=== PATIENT | female | born 1985 | race Caucasian/White ===

== ENCOUNTER 2017-02-19 22:42 | Emergency (ER) | payer MEDICAID ==
[2017-02-19] MEDS ORDERED: Sodium Chloride 0.9% 2.5 ML Syringe FLUSH PRN (22:56)
[2017-02-19] MEDS ORDERED: Sodium Chloride 0.9% 10 ML Syringe FLUSH PRN (22:56)
[2017-02-19] MEDS ORDERED: Sodium Chloride 0.9% 1,000 ML IV ONE (22:56)
--- NOTE | 2017-02-19 23:02 | EDM.PDOC ---
[id number]: PT HAS FEVER Time Seen by Provider: 02/19/17 22:57 - History of Present Illness INITIAL COMMENTS - FREE TEXT/NARRATIVE: HISTORY AND PHYSICAL: History of present illness: Patient's age 31-year-old white female 12 weeks status post vaginal hysterectomy presents with sternal or abdominal pain and low-grade fevers but no vomiting no diarrhea no other complaints Review of systems: As per history of present illness and below otherwise all systems reviewed and negative. Past medical history: As per history of present illness and as reviewed below otherwise noncontributory. Surgical history: As per history of present illness and as reviewed below otherwise noncontributory. Social history: No reported history of drug or alcohol abuse. Family history: As per history of present illness and as reviewed below otherwise noncontributory. Physical exam: HEENT: Atraumatic, normocephalic, pupils reactive, negative for conjunctival pallor or scleral icterus, mucous membranes moist, throat clear, neck supple, nontender, trachea midline. Lungs: Clear to auscultation, breath sounds equal bilaterally, chest nontender. Heart: S1S2, regular, negative for clicks, rubs, or JVD. Abdomen: Soft, nondistended, mild tenderness in the right lower cautions deep palpation no rebound no guarding. Negative for masses or hepatosplenomegaly. Negative for costovertebral tenderness. Pelvis: Stable nontender. Genitourinary: Deferred. Rectal: Deferred. Extremities: Atraumatic, negative for cords or calf pain. Neurovascular unremarkable. Neuro: Awake, alert, oriented. Cranial nerves II through XII unremarkable. Cerebellum unremarkable. Motor and sensory unremarkable throughout. Exam nonfocal. Diagnostics: CBC CMP lipase UA urine culture blood culture CT abdomen and pelvis chest x-ray influenza screen Therapeutics: Normal saline 1 L bolus Impression: #1 abdominal pain #2 observation 12 weeks status post vaginal hysterectomy Definitive disposition and diagnosis as appropriate pending reevaluation and review of above. Right Lower Abdomen Pain Score (Numeric/FACES): 6 - Related Data Allergies Allergy/AdvReac Type Severity Reaction Status Date / Time Morphine Allergy Disorientat Uncoded 02/19/17 22:54 ion Home Meds: Home Meds amLODIPine Besylate [Amlodipine Besylate] 10 mg PO DAILY 03/07/14 [History] Acetaminophen [Tylenol] 1,300 mg PO Q4HR 02/20/17 [History] Ibuprofen [Motrin] 1,600 mg PO Q4HR 02/20/17 [History] Lisdexamfetamine Dimesylate [Vyvanse] 70 mg PO ASDIRECTED 02/20/17 [History] Venlafaxine [Effexor] 100 mg PO DAILY 02/20/17 [History] Past Medical History HEENT History: Reports: Impaired vision Cardiovascular History: Reports: Hypertension Other Cardiovascular History: Benign Essential Hypertension Respiratory History: Reports: None Gastrointestinal History: Reports: Cholelithiasis Other Gastrointestinal History: Current non-healing wound from Tubal ligation procedure, need for wound Incision and drainage COUTIERIER History: Reports: Musculoskeletal History: Reports: Other (see below) Other Musculoskeletal History: HX: Fracture Right wrist, hx: falling no nail with puncture wound to Left knee requiring Incision and drainage Neurological History: Reports: None Psychiatric History: Reports: Depression, Other (see below) Other Psychiatric History: Chronic major depressive disorder Endocrine/Metabolic History: Reports: None Hematologic History: Reports: None Immunologic History: Reports: None Oncologic (Cancer) History: Reports: None Dermatologic History: Reports: None Other Dermatologic History: I&D knee wound, I&D of wound following tubal ligation, hx MRSA - Infectious Disease History Infectious Disease History: Reports: MRSA - Past Surgical History Head Surgeries/Procedures: Reports: None HEENT Surgical History: Reports: Oral surgery GI Surgical History: Reports: Bariatric procedure, Cholecystectomy Female Surgical History: Reports: Tubal ligation Social & Family History - Family History Family Medical History: Noncontributory - Tobacco Use Smoking Status *Q: Never Smoker Second Hand Smoke Exposure: No - Caffeine Use Caffeine Use: Reports: Soda - Alcohol Use Days Per Week of Alcohol Use: 0 - Recreational Drug Use Recreational Drug Use: No Drug Use in Last 12 Months: No ED ROS GENERAL - Review of Systems Review Of Systems: ROS reveals no pertinent complaints other than HPI. ED EXAM, GENERAL - Physical Exam Exam: See Below (see dictation) Course - Vital Signs Text/Narrative:: patient seen in ed by Dr Horan further evaluation treatment and disposition as per Dr Horan Last Recorded V/S: Last Vital Signs Temp 37.3 C 02/20/17 03:55 Pulse 89 02/20/17 03:55 Resp 20 02/20/17 03:55 BP 154/78 H 02/20/17 03:55 Pulse Ox 96 02/20/17 03:55 - Orders/Labs/Meds Orders: Active Orders 24 hr Category Date Time Status Abdomen Pelvis wo Cont [CT] Stat Exams 02/19/17 22:56 Taken Chest 2V [CR] Stat Exams 02/19/17 22:56 Taken Pelvis Non OB Comp [US] Stat Exams 02/20/17 00:13 Taken CULTURE URINE [RM] Stat Lab 02/19/17 23:00 Received Saline Lock Insert [OM.PC] Stat Oth 02/19/17 22:55 Ordered Labs: Laboratory Tests 02/19/17 02/19/17 02/19/17 Range/Units 23:00 23:10 23:10 WBC 10.94 (4.0-11.0) K/uL RBC 4.26 L (4.30-5.90) M/uL Hgb 11.1 L (12.0-16.0) g/dL Hct 34.8 L (36.0-46.0) % MCV 81.7 (80.0-98.0) fL MCH 26.1 L (27.0-32.0) pg MCHC 31.9 (31.0-37.0) g/dL RDW Std Deviation 43.3 (28.0-62.0) fl RDW Coeff of Catrachito 15 (11.0-15.0) % Plt Count 311 (150-400) K/uL MPV 10.20 (7.40-12.00) fL Neut % (Auto) 69.8 (48.0-80.0) % Lymph % (Auto) 21.1 (16.0-40.0) % Erie % (Auto) 7.9 (0.0-15.0) % Eos % (Auto) 1.0 (0.0-7.0) % Baso % (Auto) 0.2 (0.0-1.5) % Neut # (Auto) 7.6 H (1.4-5.7) K/uL Lymph # (Auto) 2.3 (0.6-2.4) K/uL Erie # (Auto) 0.9 H (0.0-0.8) K/uL Eos # (Auto) 0.1 (0.0-0.7) K/uL Baso # (Auto) 0.0 (0.0-0.1) K/uL Nucleated RBC % 0.0 /100WBC Nucleated RBCs # 0 K/uL Sodium 138 (136-146) mmol/L Potassium 3.8 (3.5-5.1) mmol/L Chloride 107 (98-110) mmol/L Carbon Dioxide 19 L (21-31) mmol/L BUN 14 (6.0-23.0) mg/dL Creatinine 0.8 (0.6-1.5) mg/dL Est Cr Clr Drug Dosing TNP Estimated GFR (MDRD) > 60.0 ml/min Glucose 101 (60-110) mg/dL Calcium 8.7 L (8.8-10.8) mg/dL Total Bilirubin 0.4 (0.1-1.5) mg/dL AST 14 (5-40) IU/L ALT 16 (8-54) IU/L Alkaline Phosphatase 107 (40-150) Total Protein 7.0 (6.0-8.0) g/dL Albumin 3.9 (3.5-5.0) g/dL Globulin 3.1 (2.0-3.5) g/dL Albumin/Globulin Ratio 1.3 (1.3-2.8) Lipase 13 (7-80) U/L Urine Color YELLOW Urine Appearance SLT CLOUDY Urine pH 6.0 (5.0-8.0) Ur Specific Poyen 1.025 (1.001-1.035) Urine Protein NEGATIVE (NEGATIVE) mg/dL Urine Glucose (UA) NEGATIVE (NEGATIVE) mg/dL Urine Ketones NEGATIVE (NEGATIVE) mg/dL Urine Occult Blood SMALL H (NEGATIVE) Urine Nitrite NEGATIVE (NEGATIVE) Urine Bilirubin NEGATIVE (NEGATIVE) Urine Urobilinogen 0.2 (<2.0) EU/dL Ur Leukocyte Esterase LARGE (NEGATIVE) Urine RBC 1-3 (0-2/HPF) Urine WBC 125-150 (0-5/HPF) Ur Epithelial Cells FEW (NONE-FEW) Amorphous Sediment LIGHT (NEGATIVE) Urine Bacteria FEW (NEGATIVE) Urine Mucus LIGHT (NONE-MOD) Eva species DNA (NEGATIVE) Gardnerella DNA Probe Trichomonas DNA Probe (NEGATIVE) 02/20/ Range/Units 03:25 WBC (4.0-11.0) K/uL RBC (4.30-5.90) M/uL Hgb (12.0-16.0) g/dL Hct (36.0-46.0) % MCV (80.0-98.0) fL MCH (27.0-32.0) pg MCHC (31.0-37.0) g/dL RDW Std Deviation (28.0-62.0) fl RDW Coeff of Catrachito (11.0-15.0) % Plt Count (150-400) K/uL MPV (7.40-12.00) fL Neut % (Auto) (48.0-80.0) % Lymph % (Auto) (16.0-40.0) % Erie % (Auto) (0.0-15.0) % Eos % (Auto) (0.0-7.0) % Baso % (Auto) (0.0-1.5) % Neut # (Auto) (1.4-5.7) K/uL Lymph # (Auto) (0.6-2.4) K/uL Erie # (Auto) (0.0-0.8) K/uL Eos # (Auto) (0.0-0.7) K/uL Baso # (Auto) (0.0-0.1) K/uL Nucleated RBC % /100WBC Nucleated RBCs # K/uL Sodium (136-146) mmol/L Potassium (3.5-5.1) mmol/L Chloride (98-110) mmol/L Carbon Dioxide (21-31) mmol/L BUN (6.0-23.0) mg/dL Creatinine (0.6-1.5) mg/dL Est Cr Clr Drug Dosing Estimated GFR (MDRD) ml/min Glucose (60-110) mg/dL Calcium (8.8-10.8) mg/dL Total Bilirubin (0.1-1.5) mg/dL AST (5-40) IU/L ALT (8-54) IU/L Alkaline Phosphatase (40-150) Total Protein (6.0-8.0) g/dL Albumin (3.5-5.0) g/dL Globulin (2.0-3.5) g/dL Albumin/Globulin Ratio (1.3-2.8) Lipase (7-80) U/L Urine Color Urine Appearance Urine pH (5.0-8.0) Ur Specific Poyen (1.001-1.035) Urine Protein (NEGATIVE) mg/dL Urine Glucose (UA) (NEGATIVE) mg/dL Urine Ketones (NEGATIVE) mg/dL Urine Occult Blood (NEGATIVE) Urine Nitrite (NEGATIVE) Urine Bilirubin (NEGATIVE) Urine Urobilinogen (<2.0) EU/dL Ur Leukocyte Esterase (NEGATIVE) Urine RBC (0-2/HPF) Urine WBC (0-5/HPF) Ur Epithelial Cells (NONE-FEW) Amorphous Sediment (NEGATIVE) Urine Bacteria (NEGATIVE) Urine Mucus (NONE-MOD) Eva species DNA NEGATIVE (NEGATIVE) Gardnerella DNA Probe POSITIVE Trichomonas DNA Probe NEGATIVE (NEGATIVE) Meds: Medications Discontinued Medications Generic Name Dose Route Start Last Admin Trade Name Freq PRN Reason Stop Dose Admin Sodium Chloride 1,000 mls @ 999 mls/hr 02/19/17 22:56 02/19/17 23:15 Normal Saline IV 02/19/17 23:56 999 mls/hr STAT ONE Administration Ceftriaxone Sodium/Dextrose 2 50 mls @ 100 mls/hr 02/19/17 23:58 02/20/17 01: 27 gm/ Premix IV 02/20/17 00:27 100 mls/hr ONETIME ONE Administration Sodium Chloride 10 ml 02/19/17 22:56 Saline Flush FLUSH ASDIRECTED PRN Keep Vein Open Sodium Chloride 2.5 ml 02/19/17 22:56 Saline Flush FLUSH ASDIRECTED PRN Keep Vein Open Departure - Departure Time of Disposition: 03:00 Disposition: Home, Self-Care 01 Clinical Impression: Ovarian Torsion, UTI (urinary tract infection) Instructions: Abdominal Pain, Adult, [id number] Referrals: Jana Shafer [Ordering Only Provider] - PCP,None [Primary Care Provider] - Forms: ED Department Discharge Additional Instructions: Please take medications as prescribed, you may use Motrin and Tylenol for pain control. Soni Bates will call you on Wednesday to schedule an appointment. Please nothing vaginally until seen by Provider. Return to the ED as needed and discussed. - My Orders Last 24 Hours: My Active Orders 02/19/17 22:55 Saline Lock Insert [OM.PC] Stat 02/19/17 22:56 Abdomen Pelvis wo Cont [CT] Stat Chest 2V [CR] Stat 02/19/17 23:00 CULTURE URINE [RM] Stat 02/20/17 00:13 Pelvis Non OB Comp [US] Stat - Assessment/Plan Last 24 Hours: My Active Orders 02/19/17 22:55 Saline Lock Insert [OM.PC] Stat 02/19/17 22:56 Abdomen Pelvis wo Cont [CT] Stat Chest 2V [CR] Stat 02/19/17 23:00 CULTURE URINE [RM] Stat 02/20/17 00:13 Pelvis Non OB Comp [US] Stat
[2017-02-19 23:48] LABS: CHLORIDE,CL 107 mmol/L (98-110); SODIUM,NA 138 mmol/L (136-146)
[2017-02-19] MEDS ORDERED: cefTRIAXone 2 GM in Premix Bag 1 BAG IV ONE (23:58)
[2017-02-20 04:08] VITALS: BP 154/78
--- NOTE | 2017-02-20 07:53 | HP ---
DATE OF : 1985 PRIMARY CARE PHYSICIAN: None PCP PRESENTING COMPLAINT: 1) Right-sided lower abdominal pain. 2) Fever HISTORY: 31-year-old, Para 2 presented to the ER with complaints of 5 days duration of intermittent right-sided lower quadrant pain, described as a burning stabbing pain, nonradiating with no known aggravating factors. Reports that she does some relief with Ibuprofen and Bentyl prescribed during her office visit 3 days ago She reports that she has had ongoing low grade fever at home for the last 2 days but last night she had a fever of 101 hence her presentation to the ER. She denies nausea or vomiting, bloating, no change in bowel habits and no bloody or mucoid stools. Denies urinary symptoms and also denies vaginal bleeding, abnormal discharge, vaginal pressure or pain. In the ER, the patient had a CT scan, which showed a soft tissue density in the right pelvis with surrounding fat stranding, and this was read as highly concerning for right ovarian torsion.The appendix was visualized and reported as normal. A pelvic ultrasound was then performed, which showed an ill-defined appearance of possibly the right ovary with diminished blood flow, also read as worrying for an evolving or intermittent right ovarian torsion. There was a small amount of pelvic fluid in the cul-de-sac. Her lab results were normal with a WBC count of 10.9, Hemoglobin of 11.11, hematocrit of 34.8, and platelets of 311. CMP was normal, so were the LFTs. Urinalysis showed occult blood, large amount of leukocyte esterase with WBC/pf of 125 to 150, negative for nitrites. She given 2 g of Rocephin empirically for a urinary tract infection by the ER attending. REVIEW OF SYSTEMS: As in the body of the history. MEDICAL HISTORY: Hypertension Depression with anxiety Morbid obesity History of MRSA Chronic anemia, Vitamins D and B12 deficiency. SURGICAL HISTORY: Total vaginal hysterectomy in 11/2016 for menorrhagia Abdominoplasty 2006 Gastric bypass 2004 Carpal tunnel surgery 2014 Multiple left knee surgeries FAMILY HISTORY: History of psychiatric disorders in Mother and Siblings and Hypercholesteremia in father. SOCIAL HISTORY: Single, in a long-term relationship. Nonsmoker. Denies the use of illicit drugs or ingestion of alcohol. GYNECOLOGICAL HISTORY: Periods are absent secondary to hysterectomy,currently not sexually active. History of genital herpes. OBSTETRIC HISTORY: Two normal vaginal deliveries. MEDICATION: Effexor 150 mg daily Temazepam 50 mg as needed Iron supplement Vitamin D 50,000 international units weekly Norvasc 10 mg daily Ibuprofen 600 mg 4 times a day PRN Vyvanse 70 mg PRN ALLERGIES: Morphine: difficulty in breathing. PHYSICAL EXAMINATION: GENERAL: When I saw the patient in the ER, she was sitting upright, not in distress, reported a pain scale of about 4/5, but not requiring any pain medications. VITAL SIGNS: Temperature 36.7C (T-max in the ER was 37.7 C on admission), BP 131/86, IN: 90bpm CHEST: Clear to auscultation bilaterally. CARDIOVASCULAR: S1+ S2, RRR. ABDOMEN: Morbidly obese, soft with mild tenderness on the right side, no rebound tenderness. Normal bowel sounds. EXTREMITIES: No edema. No calf tenderness. PELVIC: No external lesions. Speculum revealed small amount of creamy discharge. Absent uterus and cervix with intact cuff Affirm swab was collected. Mildly tender right adnexa on bimanual examination. On rectovaginal examination, the right adnexa was tender and I could feel a fullness on that side but I was unable to palpate any mass bimanually, mainly due to the patient's body habitus. ASSESSMENT: Right lower quadrant/ Pelvic pain with imaging suspicious for possible right ovarian torsion. The patient is stable, not in acute distress and has no signs and symptoms of acute abdomen or peritonitis. PLAN: I discussed the radiological findings with the patient explaining that the CT and the ultrasound suggest that she might have an ovarian torsion and explained what implications of a possible ovarian torsion would mean. Explained that since her symptoms have been ongoing for about a week and she is stable without signs of an acute abdomen, and if there is indeed an ovarian torsion it could have been torting and detorting based on her history but currently there is no clinical indication for an emergency laparoscopy, which would be the only way a definite diagnosis can be made then proceed by indicated procedures depending on intraoperative finding. Since she has had a low-grade fever for the last 48 hours and could possibly have a UTI ( urine culture pending), and also reported on the CT scan, was fat straining on the right side which could also point to a potential on going infective/ inflammatory process. on that side. I am going to continue PO antibiotics, Augmentin. I would arrange for a follow up for her on Wednesday, with a repeat follow up sonogram. She might require to have a diagnostic laparoscopy for further investigation/ management and this can be done as a nonemergent procedure given the current clinical picture/presentation and her other comorbidities. I haven't prescribed any narcotics for her as she hasn't required any throughout her ER stay, she may continue to take the NSAIDs as needed with food. [facility] will contact her on Wednesday follow up appointment. The patient voiced understanding and agreed with the above management plan. MAAME / JENSEN /[id number] AMRIK
--- NOTE | 2017-02-22 13:26 | CR ---
EXAM DATE: 02/19/17 PATIENT'S AGE: 31 Patient: AUBREE ALFARO Facility: [facility] Site . Site : 1985 Study: XRay-Chest [id number]/24/2017 11:53:23 PM Ordering Physician: Doctor Cunha Final Report: INDICATIONS: Fever. TECHNIQUE: Chest 2 view. COMPARISON: Chest radiograph 12/29/2013. FINDINGS: No pneumothorax, pleural effusion or airspace consolidation. Cardiac and mediastinal contours are within normal limits. Upper abdomen and osseous structures show no acute abnormality. IMPRESSION: No acute cardiopulmonary disease. Dictated by Christopher Jain MD @ 02/19/2017 11:57:19 PM Dictated by: Christopher Jain MD @ 02/19/2017 23:57:22 Signed by: Christopher Jain MD @02/19/2017 11:57:22 PM (Electronic Signature) Report Signed by Proxy and Original Signed Document filed in the Medical Record. MTDD
--- NOTE | 2017-02-22 13:27 | US ---
EXAM DATE: 02/19/17 PATIENT'S AGE: 31 Patient: AUBREE ALFARO Facility: [facility] Site . Site : 1985 Study: US-Pelvis [id number] 1:26:38 AM Ordering Physician: Gabriel Sanchez Final Report: INDICATION: Right pelvic pain. Pain x4 days. Hysterectomy 8 weeks ago. TECHNIQUE: Ultrasound pelvis transvaginal for better assessment or to better visualize the endometrium. Real-time sonographic images with spectral and color Doppler imaging of the ovaries were obtained. COMPARISON: CT abdomen and pelvis same date. FINDINGS: The uterus is absent. There is a heterogeneous ill-defined appearance of the right ovary. Left ovary measures 3.2 x 2.6 x 2.7 cm. The left ovary is normal in appearance. There is asymmetric, diminished flow in the right ovary compared to the left. Small amount of pelvic free fluid. IMPRESSION: Heterogeneous ill-defined appearance of the right ovary with diminished flow, worrisome for evolving or intermittent ovarian torsion. Discussed with Dr. Rios at the time of dictation. Dictated by Christopher Jain MD @ 02/20/2017 1:38:31 AM Dictated by: Christopher Jain MD @ 02/20/2017 01:38:46 Signed by: Christopher Jain MD @02/20/2017 1:38:46 AM (Electronic Signature) Report Signed by Proxy and Original Signed Document filed in the Medical Record. AMRIK
--- NOTE | 2017-02-22 13:28 | CT ---
EXAM DATE: 02/19/17 PATIENT'S AGE: 31 Patient: AUBREE ALFARO Facility: [facility] Site . Site : 1985 Study: CT-Abdomen/Pelvis WO CONT [id number]/24/2017 11:54:08 PM Ordering Physician: Doctor Cunha Final Report: INDICATION: Right lower quadrant pain for 4 days TECHNIQUE: CT abdomen and pelvis without contrast. COMPARISON: None FINDINGS: Lower chest: Unremarkable. Liver: Unremarkable. Spleen: Unremarkable. Pancreas: Unremarkable. Gallbladder and bile ducts: Status post cholecystectomy. Adrenal glands: Unremarkable. Kidneys: Unremarkable. No kidney or ureteral stones and no hydronephrosis. GI tract: Postoperative changes of a gastric bypass procedure. Appendix is normal. Vascular structures: Unremarkable. Lymph nodes: Unremarkable. Miscellaneous: Unremarkable. No free air or significant free fluid. Pelvic Organs: Status post hysterectomy. There is a 4.1 x 3.2 x 3.9 cm soft tissue density in the right pelvis with surrounding fat stranding. This lies directly lateral to the surgical clips. Bones: Unremarkable for age. IMPRESSION: 1. Soft tissue density in the right pelvis with surrounding fat stranding. Findings are highly concerning for right ovarian torsion. A pelvic ultrasound is recommended for further evaluation. These findings were discussed with Dr. Rios at 12:13am on 02/20/2017. 2. Normal appendix. 3. Status post cholecystectomy, gastric bypass, and hysterectomy. Dictated by Kari Martinez MD @ Feb 19 2017 11:58PM Signed by: Kari Martinez MD @02/20/2017 12:10:01 AM (Electronic Signature) \Report Signed by Proxy and Original Signed Document filed in the Medical Record. [facility]
== END 2017-02-20 03:55 | disposition home or self-care (01) ==
LOC: MW.ED 22:42
DX: R10.31 Right lower quadrant pain (principal); Z90.710 Acquired absence of both cervix and uterus; Z88.6 Allergy status to analgesic agent; Z79.899 Other long term (current) drug therapy; I10 Essential (primary) hypertension; F32.9 Major depressive disorder, single episode, unspecified
CPT/HCPCS: 36415; 71020; 74176; 76856; 80053; 81001; 83690; 85025; 87086; 87480; 87510; 87660; 87804; 96361; 96365; 99285; J0696; J7040; 99284

== ENCOUNTER 2017-08-11 18:29 | Emergency (ER) | payer MEDICAID ==
[2017-08-11 18:42] VITALS: BP 138/95
--- NOTE | 2017-08-11 19:16 | EDM.PDOC ---
ED HPI GENERAL MEDICAL PROBLEM - General Chief Complaint: Lower Extremity Injury/Pain Stated Complaint: LEFT LEG BRUNING TO CRAMPING Time Seen by Provider: 08/11/17 19:05 - History of Present Illness INITIAL COMMENTS - FREE TEXT/NARRATIVE: HISTORY AND PHYSICAL: History of present illness: Patient 32-year-old white female presents with concern of left leg pain is a family history of deep venous thrombosis patient denies trauma denies shortness of breath denies history of prior DVT no fever no chills no other complaints Review of systems: As per history of present illness and below otherwise all systems reviewed and negative. Past medical history: As per history of present illness and as reviewed below otherwise noncontributory. Surgical history: As per history of present illness and as reviewed below otherwise noncontributory. Social history: No reported history of drug or alcohol abuse. Family history: As per history of present illness and as reviewed below otherwise noncontributory. Physical exam: HEENT: Atraumatic, normocephalic, pupils reactive, negative for conjunctival pallor or scleral icterus, mucous membranes moist, throat clear, neck supple, nontender, trachea midline. Lungs: Clear to auscultation, breath sounds equal bilaterally, chest nontender. Heart: S1S2, regular, negative for clicks, rubs, or JVD. Abdomen: Soft, nondistended, nontender. Negative for masses or hepatosplenomegaly. Negative for costovertebral tenderness. Pelvis: Stable nontender. Genitourinary: Deferred. Rectal: Deferred. Extremities: Atraumatic, negative for cords or calf pain. Neurovascular unremarkable. Neuro: Awake, alert, oriented. Cranial nerves II through XII unremarkable. Cerebellum unremarkable. Motor and sensory unremarkable throughout. Exam nonfocal. Diagnostics: Venous Doppler left lower extremity Therapeutics: None Impression: #1 left leg pain Definitive disposition and diagnosis as appropriate pending reevaluation and review of above. Left Lower Leg Pain Score (Numeric/FACES): 4 - Related Data Allergies Allergy/AdvReac Type Severity Reaction Status Date / Time Morphine Allergy Disorientat Uncoded 08/11/17 18:38 ion Home Meds: Home Meds amLODIPine Besylate [Amlodipine Besylate] 10 mg PO DAILY 03/07/14 [History] Acetaminophen [Tylenol] 1,300 mg PO Q4HR 02/20/17 [History] Ibuprofen [Motrin] 1,600 mg PO Q4HR 02/20/17 [History] DULoxetine [Cymbalta] 120 mg PO DAILY 08/11/17 [History] Dextroamphetamine/Amphetamine [Adderall 20 mg Tablet] 20 mg PO BID 08/11/17 [ History] Past Medical History HEENT History: Reports: Impaired Vision Cardiovascular History: Reports: Hypertension Other Cardiovascular History: Benign Essential Hypertension Respiratory History: Reports: None Gastrointestinal History: Reports: Cholelithiasis Other Gastrointestinal History: Current non-healing wound from Tubal ligation procedure, need for wound Incision and drainage 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 OB/BYN History: Vaginal Hysterectomy Musculoskeletal History: Reports: Other (See Below) Other Musculoskeletal History: HX: Fracture Right wrist, hx: falling no nail with puncture wound to Left knee requiring Incision and drainage Neurological History: Reports: None Psychiatric History: Reports: Depression, Other (See Below) Other Psychiatric History: Chronic major depressive disorder Endocrine/Metabolic History: Reports: None Hematologic History: Reports: None Immunologic History: Reports: None Oncologic (Cancer) History: Reports: None Other Oncologic History: uterine hyperplasia Dermatologic History: Reports: None Other Dermatologic History: I&D knee wound, I&D of wound following tubal ligation, hx MRSA - Infectious Disease History Infectious Disease History: Reports: MRSA - Past Surgical History Head Surgeries/Procedures: Reports: None HEENT Surgical History: Reports: Oral Surgery GI Surgical History: Reports: Bariatric Procedure, Cholecystectomy Female Surgical History: Reports: Tubal Ligation Musculoskeletal Surgical History: Reports: Other (See Below) Social & Family History - Family History Family Medical History: Noncontributory Cardiac: Reports: Blood Clots/VTE/DVT - Tobacco Use Smoking Status *Q: Never Smoker Second Hand Smoke Exposure: No - Caffeine Use Caffeine Use: Reports: None - Alcohol Use Days Per Week of Alcohol Use: 0 - Recreational Drug Use Recreational Drug Use: No Drug Use in Last 12 Months: No Review of Systems - Review of Systems Review Of Systems: ROS reveals no pertinent complaints other than HPI. ED EXAM, GENERAL - Physical Exam Exam: See Below (See dictation) Course - Vital Signs Last Recorded V/S: Last Vital Signs Temp 36.0 C 08/11/17 18:40 Pulse 98 08/11/17 18:40 Resp 18 08/11/17 18:40 BP 138/95 H 08/11/17 18:40 Pulse Ox 97 08/11/17 18:40 Departure - Departure Time of Disposition: 19:09 Disposition: Home, Self-Care 01 Condition: Good Clinical Impression: Leg pain - Discharge Information Instructions: Foot Sprain Referrals: PCP,None [Primary Care Provider] - Forms: ED Department Discharge Additional Instructions: The following information is given to patients seen in the emergency department who are being discharged to home. This information is to outline your options for follow-up care. We provide all patients seen in our emergency department with a follow-up referral. The need for follow-up, as well as the timing and circumstances, are variable depending upon the specifics of your emergency department visit. If you don't have a primary care physician on staff, we will provide you with a referral. We always advise you to contact your personal physician following an emergency department visit to inform them of the circumstance of the visit and for follow-up with them and/or the need for any referrals to a consulting specialist. The emergency department will also refer you to a specialist when appropriate. This referral assures that you have the opportunity for followup care with a specialist. All of these measure are taken in an effort to provide you with optimal care, which includes your followup. Under all circumstances we always encourage you to contact your private physician who remains a resource for coordinating your care. When calling for followup care, please make the office aware that this follow-up is from your recent emergency room visit. If for any reason you are refused follow-up, please contact the [facility] emergency department at and asked to speak to the emergency department charge nurse. Follow-up primary medical doctor 1-2 days return as needed as discussed
--- NOTE | 2017-08-12 10:15 | US ---
EXAM DATE: 08/11/17 PATIENT'S AGE: 32 Patient: AUBREE ALFARO Facility: [place], [place] Site . Site : 1985 Study: US Extremity Venous [id number] 8:52:11 PM Ordering Physician: Gabriel Sanchez Final Report: INDICATION: Pain and swelling left lower extremity. TECHNIQUE: Ultrasound venous duplex lower left extremity. Compression venous exam was performed using taylor-scale, color Doppler, and spectral Doppler analysis. COMPARISON: No comparison. FINDINGS: Sonographic imaging demonstrates the left common femoral, deep femoral, superficial femoral, popliteal, posterior tibial and greater saphenous and the contralateral right common femoral veins to be fully compressible with normal color Doppler blood flow. IMPRESSION: No sign of deep venous thrombosis. Dictated by Kishore Reddy MD @ Aug 11 2017 9:04PM (Electronic Signature) Report Signed by Proxy. AMRIK
== END 2017-08-11 20:55 | disposition home or self-care (01) ==
LOC: MW.ED 18:29
DX: M79.605 Pain in left leg (principal); I10 Essential (primary) hypertension; F32.9 Major depressive disorder, single episode, unspecified; Z90.710 Acquired absence of both cervix and uterus; Z98.84 Bariatric surgery status; Z90.49 Acquired absence of other specified parts of digestive tract; Z79.899 Other long term (current) drug therapy; Z88.5 Allergy status to narcotic agent
CPT/HCPCS: 93971-26-LT; 93971-LT; 99283; 99283-25

== ENCOUNTER 2017-09-01 21:51 | Emergency (ER) | payer MEDICAID ==
[2017-09-01 22:05] VITALS: BP 135/84
--- NOTE | 2017-09-01 22:14 | EDM.PDOC ---
ED HPI GENERAL MEDICAL PROBLEM - General Chief Complaint: ENT Problem Stated Complaint: PT HAS TOOTHACHE Time Seen by Provider: 09/01/17 22:09 Source of Information: Reports: Patient - History of Present Illness INITIAL COMMENTS - FREE TEXT/NARRATIVE: HISTORY AND PHYSICAL: History of present illness: [Patient presents post tooth extraction on Wednesday, she had all of her upper teeth extracted lower teeth were extracted previously she is used her pain medicine prescribed by the oral surgeon she has been using Tylenol and ibuprofen and topical lidocaine without benefit No fever nausea vomiting chills sweats ] Review of systems: As per history of present illness and below otherwise all systems reviewed and negative. Past medical history: As per history of present illness and as reviewed below otherwise noncontributory. Surgical history: As per history of present illness and as reviewed below otherwise noncontributory. Social history: No reported history of drug or alcohol abuse. Family history: As per history of present illness and as reviewed below otherwise noncontributory. Physical exam: HEENT: Atraumatic, normocephalic, pupils reactive, negative for conjunctival pallor or scleral icterus, mucous membranes moist, throat clear, neck supple, nontender, trachea midline. No dentition postop Lungs: Clear to auscultation, breath sounds equal bilaterally, chest nontender. Heart: S1S2, regular, negative for clicks, rubs, or JVD. Abdomen: Soft, nondistended, nontender. Negative for masses or hepatosplenomegaly. Negative for costovertebral tenderness. Pelvis: Stable nontender. Genitourinary: Deferred. Rectal: Deferred. Extremities: Atraumatic, negative for cords or calf pain. Neurovascular unremarkable. Neuro: Awake, alert, oriented. Cranial nerves II through XII unremarkable. Cerebellum unremarkable. Motor and sensory unremarkable throughout. Exam nonfocal. Diagnostics: []Clinical Therapeutics: []Marcus 5 per 325 #10 one to 2 by mouth every 6 when necessary no refill Follow-up with oral surgeon for continued treatment Impression: []Postop dental pain Definitive disposition and diagnosis as appropriate pending reevaluation and review of above. Left Upper Tooth/Teeth Pain Score (Numeric/FACES): 10 - Related Data Allergies Allergy/AdvReac Type Severity Reaction Status Date / Time Morphine Allergy Disorientat Uncoded 09/01/17 22:05 ion Home Meds: Home Meds amLODIPine Besylate [Amlodipine Besylate] 10 mg PO DAILY 03/07/14 [History] DULoxetine [Cymbalta] 120 mg PO DAILY 08/11/17 [History] Dextroamphetamine/Amphetamine [Adderall 20 mg Tablet] 20 mg PO BID 08/11/17 [ History] Past Medical History HEENT History: Reports: Impaired Vision Cardiovascular History: Reports: Hypertension Other Cardiovascular History: Benign Essential Hypertension Respiratory History: Reports: None Gastrointestinal History: Reports: Cholelithiasis Other Gastrointestinal History: Current non-healing wound from Tubal ligation procedure, need for wound Incision and drainage 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 OB/BYN History: Vaginal Hysterectomy Musculoskeletal History: Reports: Other (See Below) Other Musculoskeletal History: HX: Fracture Right wrist, hx: falling no nail with puncture wound to Left knee requiring Incision and drainage Neurological History: Reports: None Psychiatric History: Reports: Depression, Other (See Below) Other Psychiatric History: Chronic major depressive disorder Endocrine/Metabolic History: Reports: None Hematologic History: Reports: None Immunologic History: Reports: None Oncologic (Cancer) History: Reports: None Other Oncologic History: uterine hyperplasia Dermatologic History: Reports: None Other Dermatologic History: I&D knee wound, I&D of wound following tubal ligation, hx MRSA - Infectious Disease History Infectious Disease History: Reports: Chicken Pox, MRSA - Past Surgical History Head Surgeries/Procedures: Reports: None HEENT Surgical History: Reports: Oral Surgery GI Surgical History: Reports: Bariatric Procedure, Cholecystectomy Female Surgical History: Reports: Tubal Ligation Musculoskeletal Surgical History: Reports: Other (See Below) Social & Family History - Family History Family Medical History: Noncontributory Cardiac: Reports: Blood Clots/VTE/DVT - Tobacco Use Smoking Status *Q: Never Smoker Second Hand Smoke Exposure: No - Caffeine Use Caffeine Use: Reports: None - Alcohol Use Days Per Week of Alcohol Use: 0 - Recreational Drug Use Recreational Drug Use: No Drug Use in Last 12 Months: No ED ROS GENERAL - Review of Systems Review Of Systems: ROS reveals no pertinent complaints other than HPI. ED EXAM, GENERAL - Physical Exam Exam: See Below Course - Vital Signs Last Recorded V/S: Last Vital Signs Temp 36.6 C 09/01/17 22:02 Pulse 71 09/01/17 22:02 Resp 18 09/01/17 22:02 BP 135/84 09/01/17 22:02 Pulse Ox 96 09/01/17 22:02 Departure - Departure Time of Disposition: 22:14 Disposition: Home, Self-Care 01 Condition: Good Clinical Impression: Pain, dental - Discharge Information Referrals: PCP,None [Primary Care Provider] - Additional Instructions: Follow-up with the oral surgeon for continued management Medication as prescribed The following information is given to patients seen in the emergency department who are being discharged to home. This information is to outline your options for follow-up care. We provide all patients seen in our emergency department with a follow-up referral. The need for follow-up, as well as the timing and circumstances, are variable depending upon the specifics of your emergency department visit. If you don't have a primary care physician on staff, we will provide you with a referral. We always advise you to contact your personal physician following an emergency department visit to inform them of the circumstance of the visit and for follow-up with them and/or the need for any referrals to a consulting specialist. The emergency department will also refer you to a specialist when appropriate. This referral assures that you have the opportunity for follow-up care with a specialist. All of these measure are taken in an effort to provide you with optimal care, which includes your follow-up. Under all circumstances we always encourage you to contact your private physician who remains a resource for coordinating your care. When calling for follow-up care, please make the office aware that this follow-up is from your recent emergency room visit. If for any reason you are refused follow-up, please contact the [facility] emergency department at and asked to speak to the emergency department charge nurse.
== END 2017-09-01 22:19 | disposition home or self-care (01) ==
LOC: MW.ED 21:51
DX: G89.18 Other acute postprocedural pain (principal); I10 Essential (primary) hypertension; K08.89 Other specified disorders of teeth and supporting structures; F32.9 Major depressive disorder, single episode, unspecified; Z98.818 Other dental procedure status; Z90.710 Acquired absence of both cervix and uterus; Z98.84 Bariatric surgery status; Z90.49 Acquired absence of other specified parts of digestive tract; Z79.899 Other long term (current) drug therapy; Z88.5 Allergy status to narcotic agent
CPT/HCPCS: 99282

== ENCOUNTER 2017-09-29 00:12 | Emergency (ER) | payer MEDICAID ==
[2017-09-29] MEDS ORDERED: methylPREDNISolone Acetate 80 MG/ML SDV IM ONE (00:34)
[2017-09-29] MEDS ORDERED: diphenhydrAMINE 50 MG/ML SDV IM ONE (00:35)
[2017-09-29] MEDS ORDERED: Triamcinolone Acetonide 0.1% Crm 80 GM Tube TOP STA (00:35)
--- NOTE | 2017-09-29 00:38 | EDM.PDOC ---
ED HPI GENERAL MEDICAL PROBLEM - General Chief Complaint: Skin Complaint Stated Complaint: ALLERGIC REACTION Time Seen by Provider: 09/29/17 00:28 Source of Information: Reports: Patient, RN - History of Present Illness INITIAL COMMENTS - FREE TEXT/NARRATIVE: itchy rash after temporary tattoo removal dorsum left hand. Left Arm Pain Score (Numeric/FACES): 3 - Related Data Allergies Allergy/AdvReac Type Severity Reaction Status Date / Time Morphine Allergy hard time Uncoded 09/29/17 00:18 breathing Home Meds: Home Meds amLODIPine Besylate [Amlodipine Besylate] 10 mg PO DAILY 03/07/14 [History] DULoxetine [Cymbalta] 120 mg PO DAILY 08/11/17 [History] Dextroamphetamine/Amphetamine [Adderall 20 mg Tablet] 20 mg PO BID 08/11/17 [ History] Past Medical History HEENT History: Reports: Impaired Vision Cardiovascular History: Reports: Hypertension Other Cardiovascular History: Benign Essential Hypertension Respiratory History: Reports: None Gastrointestinal History: Reports: Cholelithiasis Other Gastrointestinal History: Current non-healing wound from Tubal ligation procedure, need for wound Incision and drainage 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 OB/BYN History: Vaginal Hysterectomy Musculoskeletal History: Reports: Other (See Below) Other Musculoskeletal History: HX: Fracture Right wrist, hx: falling no nail with puncture wound to Left knee requiring Incision and drainage Neurological History: Reports: None Psychiatric History: Reports: Depression, Other (See Below) Other Psychiatric History: Chronic major depressive disorder Endocrine/Metabolic History: Reports: None Hematologic History: Reports: None Immunologic History: Reports: None Oncologic (Cancer) History: Reports: None Other Oncologic History: uterine hyperplasia Dermatologic History: Reports: None Other Dermatologic History: I&D knee wound, I&D of wound following tubal ligation, hx MRSA - Infectious Disease History Infectious Disease History: Reports: Chicken Pox, MRSA - Past Surgical History Head Surgeries/Procedures: Reports: None HEENT Surgical History: Reports: Oral Surgery GI Surgical History: Reports: Bariatric Procedure, Cholecystectomy Female Surgical History: Reports: Tubal Ligation Musculoskeletal Surgical History: Reports: Other (See Below) Social & Family History - Family History Family Medical History: Noncontributory Cardiac: Reports: Blood Clots/VTE/DVT - Tobacco Use Smoking Status *Q: Never Smoker Second Hand Smoke Exposure: No - Caffeine Use Caffeine Use: Reports: None - Alcohol Use Days Per Week of Alcohol Use: 0 - Recreational Drug Use Recreational Drug Use: No Drug Use in Last 12 Months: No ED ROS GENERAL - Review of Systems Review Of Systems: See Below Constitutional: Denies: Fever ED EXAM, SKIN/RASH Exam: See Below Text/Narrative:: alert nad LUE: some hypopigmentation dorsum left hand at site of tattoo removal lungs cTA some erythema and itching diffusely left forearm mainly volar region. Some symptoms extend above the elbow. Course - Vital Signs Last Recorded V/S: Last Vital Signs Temp 97.5 F 09/29/17 00:19 Pulse 79 09/29/17 00:19 Resp 16 09/29/17 00:19 BP 130/84 09/29/17 00:19 Pulse Ox 99 09/29/17 00:19 - Orders/Labs/Meds Meds: Medications Discontinued Medications Generic Name Dose Route Start Last Admin Trade Name Juan Pabloq PRN Reason Stop Dose Admin Diphenhydramine HCl 50 mg 09/29/17 00:35 09/29/17 00:47 Benadryl IM 09/29/17 00:36 50 mg ONETIME ONE Administration Methylprednisolone Acetate 120 mg 09/29/17 00:34 09/29/17 00:42 Depo-Medrol IM 09/29/17 00:35 Not Given ONETIME ONE Methylprednisolone Sodium Succinate 125 mg 09/29/17 00:41 09/29/17 00:49 Solu-Medrol IM 09/29/17 00:42 125 mg ONETIME ONE Administration Methylprednisolone Sodium Succinate Confirm 09/29/17 00:40 09/29/17 00:43 Solu-Medrol Administered 09/29/17 00:41 Not Given Dose 125 mg .ROUTE .STK-MED ONE Triamcinolone Acetonide 3 gm 09/29/17 00:35 09/29/17 00:58 Kenalog 0.1% Crm TOP 09/29/17 00:36 Not Given NOW STA - Re-Assessments/Exams Free Text/Narrative Re-Assessment/Exam: 09/29/17 01:03 she is feeling much better. Leland Sue MD Departure - Departure Time of Disposition: 01:03 Disposition: Home, Self-Care 01 Condition: Fair Clinical Impression: Allergic reaction - Discharge Information Instructions: Allergies Referrals: Siewert,Nathaniel, MD [Primary Care Provider] - Forms: ED Department Discharge Additional Instructions: benadryl 25 to 50 mg by mouth every 6 hours as needed recheck as needed
[2017-09-29] MEDS ORDERED: methylPREDNISolone Sodium Succinate 125 MG/2 ML SDV ONE (00:40)
[2017-09-29] MEDS ORDERED: methylPREDNISolone Sodium Succinate 125 MG/2 ML SDV IM ONE (00:41)
[2017-09-29 01:17] VITALS: BP 119/56
== END 2017-09-29 01:16 | disposition home or self-care (01) ==
LOC: MW.ED 00:12
DX: T78.40XA Allergy, unspecified, initial encounter (principal); I10 Essential (primary) hypertension; F32.9 Major depressive disorder, single episode, unspecified; Z79.899 Other long term (current) drug therapy; Z88.5 Allergy status to narcotic agent
CPT/HCPCS: 96372; 99282; J1200; J2930

== ENCOUNTER 2017-12-14 20:14 | Emergency (ER) | payer MEDICAID ==
[2017-12-14 20:46] VITALS: BP 149/94
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
[2017-12-14] MEDS ORDERED: Ketorolac 60 MG/2 ML SDV IM ONE (20:50)
[2017-12-14 21:29] LABS: CHLORIDE,CL 109 mmol/L (98-110); SODIUM,NA 139 mmol/L (136-146)
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
== END 2017-12-14 21:47 | disposition home or self-care (01) ==
LOC: MW.ED 20:14
DX: S60.221A Contusion of right hand, initial encounter (principal); S60.222A Contusion of left hand, initial encounter; I10 Essential (primary) hypertension; Z88.5 Allergy status to narcotic agent; Z79.899 Other long term (current) drug therapy; V49.40XA Driver injured in collision with unspecified motor vehicles in traffic accident, initial encounter
CPT/HCPCS: 36415; 72100; 73130; 80053; 85025; 96372; 99284; J1885

== ENCOUNTER 2018-01-11 22:40 | Emergency (ER) | payer MEDICAID ==
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
[2018-01-12 03:04] VITALS: BP 137/86
== END 2018-01-12 00:27 | disposition home or self-care (01) ==
LOC: MW.ED 22:40
DX: J10.1 Influenza due to other identified influenza virus with other respiratory manifestations (principal); I10 Essential (primary) hypertension; Z88.5 Allergy status to narcotic agent; Z79.899 Other long term (current) drug therapy
CPT/HCPCS: 87804; 99283

== ENCOUNTER 2018-12-23 23:26 | Emergency (ER) | payer MEDICAID ==
--- NOTE | 2018-12-23 23:36 | EDM.PDOC ---
ED HPI GENERAL MEDICAL PROBLEM - General Stated Complaint: PT HAS BOIL AND FOOT INJURY Time Seen by Provider: 12/23/18 23:35 - History of Present Illness INITIAL COMMENTS - FREE TEXT/NARRATIVE: HISTORY AND PHYSICAL: History of present illness: Patient 36-year-old female presents with a concern of a small excoriated area to her right chest that started out as a small boil is drained and patient is concerned of possible infection. She also requests a dressing change to her left foot. She denies fever chills nausea vomiting or other complaints Review of systems: As per history of present illness and below otherwise all systems reviewed and negative. Past medical history: As per history of present illness and as reviewed below otherwise noncontributory. Surgical history: As per history of present illness and as reviewed below otherwise noncontributory. Social history: No reported history of drug or alcohol abuse. Family history: As per history of present illness and as reviewed below otherwise noncontributory. Physical exam: HEENT: Atraumatic, normocephalic, pupils reactive, negative for conjunctival pallor or scleral icterus, mucous membranes moist, throat clear, neck supple, nontender, trachea midline. Lungs: Clear to auscultation, breath sounds equal bilaterally, chest with small excoriation right chest wall no fluctuance minimal erythema no induration. Heart: S1S2, regular, negative for clicks, rubs, or JVD. Abdomen: Soft, nondistended, nontender. Negative for masses or hepatosplenomegaly. Negative for costovertebral tenderness. Pelvis: Stable nontender. Genitourinary: Deferred. Rectal: Deferred. Extremities: negative for cords or calf pain. Neurovascular unremarkable. Neuro: Awake, alert, oriented. Cranial nerves II through XII unremarkable. Cerebellum unremarkable. Motor and sensory unremarkable throughout. Exam nonfocal. Diagnostics: None Therapeutics: None Impression: #1 medical screening exam #2 rule out early superficial cellulitis right chest wall Definitive disposition and diagnosis as appropriate pending reevaluation and review of above. - Related Data Allergies Allergy/AdvReac Type Severity Reaction Status Date / Time Morphine Allergy Respiratory Uncoded 12/23/18 23:35 Depression Home Meds: Home Meds amLODIPine Besylate [Amlodipine Besylate] 0 mg PO DAILY 03/07/14 [History] Escitalopram [Lexapro] 0 mg PO DAILY 12/14/17 [History] Lisdexamfetamine [Vyvanse] 0 cap PO DAILY 12/14/17 [History] lamoTRIgine [LaMICtal] 0 mg PO DAILY 01/11/18 [History] Apixaban [Eliquis] 0 mg PO BID 10/12/18 [History] Past Medical History - Past Health History Medical/Surgical History: Denies Medical/Surgical History HEENT History: Reports: Impaired Vision Other HEENT History: wears glasses Cardiovascular History: Reports: Hypertension Other Cardiovascular History: Benign Essential Hypertension Respiratory History: Reports: None Gastrointestinal History: Reports: Cholelithiasis Other Gastrointestinal History: Current non-healing wound from Tubal ligation procedure, need for wound Incision and drainage SPECIALTIES OPERATOR History: Reports: Other SPECIALTIES OPERATOR History: Vaginal Hysterectomy Musculoskeletal History: Reports: Other (See Below) Other Musculoskeletal History: HX: Fracture Right wrist, hx: falling no nail with puncture wound to Left knee requiring Incision and drainage Neurological History: Reports: None Psychiatric History: Reports: Depression, Other (See Below) Other Psychiatric History: Chronic major depressive disorder Endocrine/Metabolic History: Reports: None Hematologic History: Reports: None Immunologic History: Reports: None Oncologic (Cancer) History: Reports: None Other Oncologic History: uterine hyperplasia Dermatologic History: Reports: None Other Dermatologic History: I&D knee wound, I&D of wound following tubal ligation, hx MRSA - Infectious Disease History Infectious Disease History: Reports: Chicken Pox, MRSA - Past Surgical History Head Surgeries/Procedures: Reports: None HEENT Surgical History: Reports: Oral Surgery GI Surgical History: Reports: Bariatric Procedure, Cholecystectomy Female Surgical History: Reports: Tubal Ligation Musculoskeletal Surgical History: Reports: Other (See Below) Social & Family History - Family History Family Medical History: Noncontributory Cardiac: Reports: Blood Clots/VTE/DVT - Caffeine Use Caffeine Use: Reports: None ED ROS GENERAL - Review of Systems Review Of Systems: ROS reveals no pertinent complaints other than HPI. ED EXAM, GENERAL - Physical Exam Exam: See Below (See dictation) Departure - Departure Time of Disposition: 23:34 Disposition: Home, Self-Care 01 Condition: Good Clinical Impression: Cellulitis, Encounter for medical screening examination - Discharge Information Additional Instructions: The following information is given to patients seen in the emergency department who are being discharged to home. This information is to outline your options for follow-up care. We provide all patients seen in our emergency department with a follow-up referral. The need for follow-up, as well as the timing and circumstances, are variable depending upon the specifics of your emergency department visit. If you don't have a primary care physician on staff, we will provide you with a referral. We always advise you to contact your personal physician following an emergency department visit to inform them of the circumstance of the visit and for follow-up with them and/or the need for any referrals to a consulting specialist. The emergency department will also refer you to a specialist when appropriate. This referral assures that you have the opportunity for followup care with a specialist. All of these measure are taken in an effort to provide you with optimal care, which includes your followup. Under all circumstances we always encourage you to contact your private physician who remains a resource for coordinating your care. When calling for followup care, please make the office aware that this follow-up is from your recent emergency room visit. If for any reason you are refused follow-up, please contact the [facility] emergency department at and asked to speak to the emergency department charge nurse. There is prescribed Motrin/Tylenol as directed follow-up primary medical doctor as needed discussed and return as needed as discussed
[2018-12-23 23:50] VITALS: BP 124/67
== END 2018-12-23 23:50 | disposition home or self-care (01) ==
LOC: MW.ED 23:26
DX: L03.313 Cellulitis of chest wall (principal); I10 Essential (primary) hypertension; Z88.5 Allergy status to narcotic agent; Z79.899 Other long term (current) drug therapy
CPT/HCPCS: 99283

== ENCOUNTER 2019-10-22 10:24 | Emergency (ER) | payer MEDICAID ==
--- NOTE | 2019-10-22 10:34 | EDM.PDOC ---
ED HPI GENERAL MEDICAL PROBLEM - General Stated Complaint: SORE THROAT Time Seen by Provider: 10/22/19 10:27 - History of Present Illness INITIAL COMMENTS - FREE TEXT/NARRATIVE: HISTORY AND PHYSICAL: History of present illness: Patient 34-year-old female presents status post injury to her right lower extremity she twisted her knee and states she also felt like she strained her Achilles tendon she has pain in both at this time there is no other trauma or concern reported Review of systems: As per history of present illness and below otherwise all systems reviewed and negative. Past medical history: As per history of present illness and as reviewed below otherwise noncontributory. Surgical history: As per history of present illness and as reviewed below otherwise noncontributory. Social history: No reported history of drug or alcohol abuse. Family history: As per history of present illness and as reviewed below otherwise noncontributory. Physical exam: HEENT: Atraumatic, normocephalic, pupils reactive, negative for conjunctival pallor or scleral icterus, mucous membranes moist, throat clear, neck supple, nontender, trachea midline. Lungs: Clear to auscultation, breath sounds equal bilaterally, chest nontender. Heart: S1S2, regular, negative for clicks, rubs, or JVD. Abdomen: Soft, nondistended, nontender. Negative for masses or hepatosplenomegaly. Negative for costovertebral tenderness. Pelvis: Stable nontender. Genitourinary: Deferred. Rectal: Deferred. Extremities: Right ankle has an Achilles tendon is intact there is no evidence of disruption partial or otherwise right knee has some mild tenderness over the medial and lateral collateral ligament joint is grossly stable with no significant effusion CMS and neurovascular exam are unremarkable Neuro: Awake, alert, oriented. Cranial nerves II through XII unremarkable. Cerebellum unremarkable. Motor and sensory unremarkable throughout. Exam nonfocal. Diagnostics: X-ray right knee Therapeutics: Knee immobilizer/crutches Impression: #1 right knee injury #2 Achilles tendon strain Definitive disposition and diagnosis as appropriate pending reevaluation and review of above. - Related Data Allergies Allergy/AdvReac Type Severity Reaction Status Date / Time Morphine Allergy Respiratory Uncoded 12/23/18 23:35 Depression Home Meds: Home Meds amLODIPine Besylate [Amlodipine Besylate] 10 mg PO DAILY 03/07/14 [History] DULoxetine [Cymbalta] 30 mg PO BEDTIME 12/23/18 [History] Dextroamphetamine/Amphetamine [Adderall Xr 10 mg Capsule] 25 mg PO DAILY [History] Past Medical History - Past Health History Medical/Surgical History: Denies Medical/Surgical History HEENT History: Reports: Impaired Vision Other HEENT History: wears glasses Cardiovascular History: Reports: Hypertension Other Cardiovascular History: Benign Essential Hypertension Respiratory History: Reports: Asthma Gastrointestinal History: Reports: Cholelithiasis Other Gastrointestinal History: Current non-healing wound from Tubal ligation procedure, need for wound Incision and drainage BREAKDOWN PERSON History: Reports: Other BREAKDOWN PERSON History: Vaginal Hysterectomy Musculoskeletal History: Reports: Other (See Below) Other Musculoskeletal History: HX: Fracture Right wrist, hx: falling no nail with puncture wound to Left knee requiring Incision and drainage; 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 Neurological History: Reports: None Psychiatric History: Reports: Depression, Other (See Below) Other Psychiatric History: Chronic major depressive disorder Endocrine/Metabolic History: Reports: Obesity/BMI 30+ Hematologic History: Reports: None Immunologic History: Reports: None Oncologic (Cancer) History: Reports: None Other Oncologic History: uterine hyperplasia Dermatologic History: Reports: None Other Dermatologic History: I&D knee wound, I&D of wound following tubal ligation, hx MRSA - Infectious Disease History Infectious Disease History: Reports: Chicken Pox, MRSA - Past Surgical History HEENT Surgical History: Reports: Adenoidectomy, Oral Surgery, Tonsillectomy GI Surgical History: Reports: Bariatric Procedure, Cholecystectomy Female Surgical History: Reports: Hysterectomy, Tubal Ligation Musculoskeletal Surgical History: Reports: Arthroscopic Knee, Other (See Below) Other Musculoskeletal Surgeries/Procedures:: bunion surgery bilat; hardware removal bilat feet Social & Family History - Family History Family Medical History: Noncontributory Cardiac: Reports: Blood Clots/VTE/DVT - Caffeine Use Caffeine Use: Reports: None ED ROS GENERAL - Review of Systems Review Of Systems: Comprehensive ROS is negative, except as noted in HPI. ED EXAM, GENERAL - Physical Exam Exam: See Below (See dictation) Course - Orders/Labs/Meds Orders: Active Orders 24 hr Category Date Time Status Knee 3V Rt [CR] Stat Exams 10/22/19 10:31 Ordered Departure - Departure Time of Disposition: 10:33 Disposition: Home, Self-Care 01 Condition: Good Clinical Impression: Knee injury, Strain of Achilles tendon - Discharge Information Referrals: Demario Vang MD [Primary Care Provider] - Additional Instructions: The following information is given to patients seen in the emergency department who are being discharged to home. This information is to outline your options for follow-up care. We provide all patients seen in our emergency department with a follow-up referral. The need for follow-up, as well as the timing and circumstances, are variable depending upon the specifics of your emergency department visit. If you don't have a primary care physician on staff, we will provide you with a referral. We always advise you to contact your personal physician following an emergency department visit to inform them of the circumstance of the visit and for follow-up with them and/or the need for any referrals to a consulting specialist. The emergency department will also refer you to a specialist when appropriate. This referral assures that you have the opportunity for followup care with a specialist. All of these measure are taken in an effort to provide you with optimal care, which includes your followup. Under all circumstances we always encourage you to contact your private physician who remains a resource for coordinating your care. When calling for followup care, please make the office aware that this follow-up is from your recent emergency room visit. If for any reason you are refused follow-up, please contact the [facility] emergency department at and asked to speak to the emergency department charge nurse. Special[facility] - [facility] [address], [address] [place] [address] Diclofenac as prescribed follow-up orthopedic surgery as discussed knee immobilizer crutches as directed and return as needed as discussed - My Orders Last 24 Hours: My Active Orders 10/22/19 10:31 Knee 3V Rt [CR] Stat - Assessment/Plan Last 24 Hours: My Active Orders 10/22/19 10:31 Knee 3V Rt [CR] Stat
[2019-10-22 10:35] VITALS: BP 128/81
--- NOTE | 2019-10-22 10:41 | EDM.PDOC ---
ED HPI GENERAL MEDICAL PROBLEM - General Chief Complaint: ENT Problem Stated Complaint: SORE THROAT Time Seen by Provider: 10/22/19 10:27 - History of Present Illness INITIAL COMMENTS - FREE TEXT/NARRATIVE: HISTORY AND PHYSICAL: History of present illness: Patient is a 34-year-old female presents with a sore throat 2 weeks she's also had a hoarse voice. She denies fever chills nausea vomiting shortness breath or other concern Review of systems: As per history of present illness and below otherwise all systems reviewed and negative. Past medical history: As per history of present illness and as reviewed below otherwise noncontributory. Surgical history: As per history of present illness and as reviewed below otherwise noncontributory. Social history: No reported history of drug or alcohol abuse. Family history: As per history of present illness and as reviewed below otherwise noncontributory. Physical exam: HEENT: Atraumatic, normocephalic, pupils reactive, negative for conjunctival pallor or scleral icterus, mucous membranes moist, throat injected no peritonsillar fullness uvular deviation trismus or hot potato voice note neck supple, nontender, trachea midline. Lungs: Clear to auscultation, breath sounds equal bilaterally, chest nontender. Heart: S1S2, regular, negative for clicks, rubs, or JVD. Abdomen: Soft, nondistended, nontender. Negative for masses or hepatosplenomegaly. Negative for costovertebral tenderness. Pelvis: Stable nontender. Genitourinary: Deferred. Rectal: Deferred. Extremities: Atraumatic, negative for cords or calf pain. Neurovascular unremarkable. Neuro: Awake, alert, oriented. Cranial nerves II through XII unremarkable. Cerebellum unremarkable. Motor and sensory unremarkable throughout. Exam nonfocal. Diagnostics: Deferred Therapeutics: None Impression: #1 pharyngitis #2 laryngitis Definitive disposition and diagnosis as appropriate pending reevaluation and review of above. Throat Pain Score (Numeric/FACES): 4 - Related Data Allergies Allergy/AdvReac Type Severity Reaction Status Date / Time Morphine Allergy Respiratory Uncoded 10/22/19 10:35 Depression Home Meds: Home Meds amLODIPine Besylate [Amlodipine Besylate] 10 mg PO DAILY 03/07/14 [History] Dextroamphetamine/Amphetamine [Adderall Xr 10 mg Capsule] 15 mg PO BID 12/23/18 [History] ALPRAZolam [Xanax] 0.25 mg PO TID PRN 10/22/19 [History] Escitalopram [Lexapro] 20 mg PO DAILY 10/22/19 [History] buPROPion [Wellbutrin SR] 150 mg PO DAILY 10/22/19 [History] lamoTRIgine [Lamictal] 100 mg PO DAILY 10/22/19 [History] Past Medical History - Past Health History Medical/Surgical History: Denies Medical/Surgical History HEENT History: Reports: Impaired Vision Other HEENT History: wears glasses Cardiovascular History: Reports: Hypertension Other Cardiovascular History: Benign Essential Hypertension Respiratory History: Reports: Asthma Gastrointestinal History: Reports: Cholelithiasis Other Gastrointestinal History: Current non-healing wound from Tubal ligation procedure, need for wound Incision and drainage 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 OF LADING CLERK History: Vaginal Hysterectomy Musculoskeletal History: Reports: Other (See Below) Other Musculoskeletal History: HX: Fracture Right wrist, hx: falling no nail with puncture wound to Left knee requiring Incision and drainage; 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 Neurological History: Reports: None Psychiatric History: Reports: Depression, Other (See Below) Other Psychiatric History: Chronic major depressive disorder Endocrine/Metabolic History: Reports: Obesity/BMI 30+ Hematologic History: Reports: None Immunologic History: Reports: None Oncologic (Cancer) History: Reports: None Other Oncologic History: uterine hyperplasia Dermatologic History: Reports: None Other Dermatologic History: I&D knee wound, I&D of wound following tubal ligation, hx MRSA - Infectious Disease History Infectious Disease History: Reports: Chicken Pox, MRSA - Past Surgical History HEENT Surgical History: Reports: Adenoidectomy, Oral Surgery, Tonsillectomy GI Surgical History: Reports: Bariatric Procedure, Cholecystectomy Female Surgical History: Reports: Hysterectomy, Tubal Ligation Musculoskeletal Surgical History: Reports: Arthroscopic Knee, Other (See Below) Other Musculoskeletal Surgeries/Procedures:: bunion surgery bilat; hardware removal bilat feet Social & Family History - Family History Family Medical History: Noncontributory Cardiac: Reports: Blood Clots/VTE/DVT - Caffeine Use Caffeine Use: Reports: None ED ROS GENERAL - Review of Systems Review Of Systems: Comprehensive ROS is negative, except as noted in HPI. ED EXAM, GENERAL - Physical Exam Exam: See Below (See dictation) Free Text/Narrative:: HISTORY AND PHYSICAL: History of present illness: Patient 34-year-old female presents status post injury to her right lower extremity she twisted her knee and states she also felt like she strained her Achilles tendon she has pain in both at this time there is no other trauma or concern reported Review of systems: As per history of present illness and below otherwise all systems reviewed and negative. Past medical history: As per history of present illness and as reviewed below otherwise noncontributory. Surgical history: As per history of present illness and as reviewed below otherwise noncontributory. Social history: No reported history of drug or alcohol abuse. Family history: As per history of present illness and as reviewed below otherwise noncontributory. Physical exam: HEENT: Atraumatic, normocephalic, pupils reactive, negative for conjunctival pallor or scleral icterus, mucous membranes moist, throat clear, neck supple, nontender, trachea midline. Lungs: Clear to auscultation, breath sounds equal bilaterally, chest nontender. Heart: S1S2, regular, negative for clicks, rubs, or JVD. Abdomen: Soft, nondistended, nontender. Negative for masses or hepatosplenomegaly. Negative for costovertebral tenderness. Pelvis: Stable nontender. Genitourinary: Deferred. Rectal: Deferred. Extremities: Right ankle has an Achilles tendon is intact there is no evidence of disruption partial or otherwise right knee has some mild tenderness over the medial and lateral collateral ligament joint is grossly stable with no significant effusion CMS and neurovascular exam are unremarkable Neuro: Awake, alert, oriented. Cranial nerves II through XII unremarkable. Cerebellum unremarkable. Motor and sensory unremarkable throughout. Exam nonfocal. Diagnostics: X-ray right knee Therapeutics: Knee immobilizer/crutches Impression: #1 right knee injury #2 Achilles tendon strain Definitive disposition and diagnosis as appropriate pending reevaluation and review of above. Course - Vital Signs Last Recorded V/S: Last Vital Signs Temp 35.4 C 10/22/19 10:32 Pulse 88 10/22/19 10:32 Resp 18 10/22/19 10:32 BP 128/81 10/22/19 10:32 Pulse Ox 97 10/22/19 10:32 - Orders/Labs/Meds Orders: Active Orders 24 hr Category Date Time Status Knee 3V Rt [CR] Stat Exams 11/24/19 10:31 Stop Req Departure - Departure Time of Disposition: 10:40 Disposition: Home, Self-Care 01 Condition: Good Clinical Impression: Pharyngitis, Laryngitis - Discharge Information Referrals: Demario Vang MD [Primary Care Provider] - Additional Instructions: The following information is given to patients seen in the emergency department who are being discharged to home. This information is to outline your options for follow-up care. We provide all patients seen in our emergency department with a follow-up referral. The need for follow-up, as well as the timing and circumstances, are variable depending upon the specifics of your emergency department visit. If you don't have a primary care physician on staff, we will provide you with a referral. We always advise you to contact your personal physician following an emergency department visit to inform them of the circumstance of the visit and for follow-up with them and/or the need for any referrals to a consulting specialist. The emergency department will also refer you to a specialist when appropriate. This referral assures that you have the opportunity for followup care with a specialist. All of these measure are taken in an effort to provide you with optimal care, which includes your followup. Under all circumstances we always encourage you to contact your private physician who remains a resource for coordinating your care. When calling for followup care, please make the office aware that this follow-up is from your recent emergency room visit. If for any reason you are refused follow-up, please contact the [facility] emergency department at and asked to speak to the emergency department charge nurse. Augmentin Phenergan with codeine as prescribed follow-up primary medical doctor as discussed return as needed as discussed - My Orders Last 24 Hours: My Active Orders 10/22/19 10:31 Knee 3V Rt [CR] Stat - Assessment/Plan Last 24 Hours: My Active Orders 10/22/19 10:31 Knee 3V Rt [CR] Stat
[2019-10-22 10:55] VITALS: PULSE 90
== END 2019-10-22 10:54 | disposition home or self-care (01) ==
LOC: MW.ED 10:24
DX: J02.9 Acute pharyngitis, unspecified (principal); J04.0 Acute laryngitis; I10 Essential (primary) hypertension; F32.9 Major depressive disorder, single episode, unspecified; Z88.5 Allergy status to narcotic agent; Z79.899 Other long term (current) drug therapy; Z90.89 Acquired absence of other organs
CPT/HCPCS: 99283-25

== ENCOUNTER 2019-11-08 21:12 | Emergency (ER) | payer MEDICAID ==
[2019-11-08 21:19] VITALS: BP 131/72; PULSE 83
--- NOTE | 2019-11-08 22:08 | EDM.PDOC ---
ED HPI GENERAL MEDICAL PROBLEM - General Chief Complaint: Respiratory Problem Stated Complaint: COUGH,COLD SYMPTOMS Time Seen by Provider: 11/08/19 22:05 - History of Present Illness INITIAL COMMENTS - FREE TEXT/NARRATIVE: HISTORY AND PHYSICAL: History of present illness: Patient is a 34-year-old white female presents with a concern of sore throat and hoarse voice she recently completed a course of antibiotics for tracheobronchitis she denies fever chills nausea vomiting or other complaints. Her cough has been intermittent subsequent. She is a smoker Review of systems: As per history of present illness and below otherwise all systems reviewed and negative. Past medical history: As per history of present illness and as reviewed below otherwise noncontributory. Surgical history: As per history of present illness and as reviewed below otherwise noncontributory. Social history: No reported history of drug or alcohol abuse. Family history: As per history of present illness and as reviewed below otherwise noncontributory. Physical exam: HEENT: Atraumatic, normocephalic, pupils reactive, negative for conjunctival pallor or scleral icterus, mucous membranes moist, throat clear, neck supple, nontender, trachea midline. Lungs: Clear to auscultation, breath sounds equal bilaterally, chest nontender. Heart: S1S2, regular, negative for clicks, rubs, or JVD. Abdomen: Soft, nondistended, nontender. Negative for masses or hepatosplenomegaly. Negative for costovertebral tenderness. Pelvis: Stable nontender. Genitourinary: Deferred. Rectal: Deferred. Extremities: Atraumatic, negative for cords or calf pain. Neurovascular unremarkable. Neuro: Awake, alert, oriented. Cranial nerves II through XII unremarkable. Cerebellum unremarkable. Motor and sensory unremarkable throughout. Exam nonfocal. Diagnostics: Rapid Strep influenza screen Therapeutics: None Impression: #1 laryngitis #2 tracheobronchitis #3 pharyngitis Definitive disposition and diagnosis as appropriate pending reevaluation and review of above. no pain Pain Score (Numeric/FACES): 0 - Related Data Allergies Allergy/AdvReac Type Severity Reaction Status Date / Time Morphine Allergy Respiratory Uncoded 11/08/19 21:15 Depression Home Meds: Home Meds amLODIPine Besylate [Amlodipine Besylate] 10 mg PO DAILY 03/07/14 [History] Dextroamphetamine/Amphetamine [Adderall Xr 10 mg Capsule] 15 mg PO BID 12/23/18 [History] ALPRAZolam [Xanax] 0.25 mg PO TID PRN 10/22/19 [History] Escitalopram [Lexapro] 20 mg PO DAILY 10/22/19 [History] buPROPion [Wellbutrin SR] 150 mg PO DAILY 10/22/19 [History] lamoTRIgine [Lamictal] 100 mg PO DAILY 10/22/19 [History] Past Medical History - Past Health History Medical/Surgical History: Denies Medical/Surgical History HEENT History: Reports: Impaired Vision Other HEENT History: wears glasses Cardiovascular History: Reports: Hypertension Other Cardiovascular History: Benign Essential Hypertension Respiratory History: Reports: Asthma Gastrointestinal History: Reports: Cholelithiasis Other Gastrointestinal History: Current non-healing wound from Tubal ligation procedure, need for wound Incision and drainage 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 FIRE ADJUSTER History: Vaginal Hysterectomy Musculoskeletal History: Reports: Other (See Below) Other Musculoskeletal History: HX: Fracture Right wrist, hx: falling no nail with puncture wound to Left knee requiring Incision and drainage; 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 Neurological History: Reports: None Psychiatric History: Reports: Depression, Other (See Below) Other Psychiatric History: Chronic major depressive disorder Endocrine/Metabolic History: Reports: Obesity/BMI 30+ Hematologic History: Reports: None Immunologic History: Reports: None Oncologic (Cancer) History: Reports: None Other Oncologic History: uterine hyperplasia Dermatologic History: Reports: None Other Dermatologic History: I&D knee wound, I&D of wound following tubal ligation, hx MRSA - Infectious Disease History Infectious Disease History: Reports: Chicken Pox, MRSA - Past Surgical History Head Surgeries/Procedures: Reports: None HEENT Surgical History: Reports: Adenoidectomy, Oral Surgery, Tonsillectomy GI Surgical History: Reports: Bariatric Procedure, Cholecystectomy Female Surgical History: Reports: Hysterectomy, Tubal Ligation Musculoskeletal Surgical History: Reports: Arthroscopic Knee, Other (See Below) Other Musculoskeletal Surgeries/Procedures:: bunion surgery bilat; hardware removal bilat feet Social & Family History - Family History Family Medical History: Noncontributory Cardiac: Reports: Blood Clots/VTE/DVT - Tobacco Use Smoking Status *Q: Never Smoker - Caffeine Use Caffeine Use: Reports: None - Recreational Drug Use Recreational Drug Use: No ED ROS GENERAL - Review of Systems Review Of Systems: Comprehensive ROS is negative, except as noted in HPI. ED EXAM, GENERAL - Physical Exam Exam: See Below (Dictation) Course - Vital Signs Last Recorded V/S: Last Vital Signs Temp 35.9 C 11/08/19 21:16 Pulse 83 11/08/19 21:16 Resp 18 11/08/19 21:16 BP 131/72 11/08/19 21:16 Pulse Ox 99 11/08/19 21:16 - Orders/Labs/Meds Orders: Active Orders 24 hr Category Date Time Status CULTURE STREP A CONFIRMATION [RM] Stat Lab 11/08/19 21:30 Results STREP SCRN A RAPID W CULT CONF [RM] Stat Lab 11/08/19 21:30 Results Departure - Departure Time of Disposition: 22:07 Disposition: Home, Self-Care 01 Condition: Good Clinical Impression: Laryngitis, Pharyngitis, Tracheobronchitis - Discharge Information Additional Instructions: The following information is given to patients seen in the emergency department who are being discharged to home. This information is to outline your options for follow-up care. We provide all patients seen in our emergency department with a follow-up referral. The need for follow-up, as well as the timing and circumstances, are variable depending upon the specifics of your emergency department visit. If you don't have a primary care physician on staff, we will provide you with a referral. We always advise you to contact your personal physician following an emergency department visit to inform them of the circumstance of the visit and for follow-up with them and/or the need for any referrals to a consulting specialist. The emergency department will also refer you to a specialist when appropriate. This referral assures that you have the opportunity for followup care with a specialist. All of these measure are taken in an effort to provide you with optimal care, which includes your followup. Under all circumstances we always encourage you to contact your private physician who remains a resource for coordinating your care. When calling for followup care, please make the office aware that this follow-up is from your recent emergency room visit. If for any reason you are refused follow-up, please contact the [facility] emergency department at and asked to speak to the emergency department charge nurse. Tylenol with Codeine albuterol as prescribed follow-up primary medical doctor return as needed as discussed Sepsis Event Note - Evaluation Sepsis Screening Result: No Definite Risk - Focused Exam Vital Signs: Vital Signs Temp Pulse Resp BP Pulse Ox 11/08/19 21:16 35.9 C 83 18 131/72 99 Date Exam was Performed: 11/08/19 Time Exam was Performed: 22:05 - My Orders Last 24 Hours: My Active Orders 11/08/19 21:30 CULTURE STREP A CONFIRMATION [RM] Stat STREP SCRN A RAPID W CULT CONF [RM] Stat - Assessment/Plan Last 24 Hours: My Active Orders 11/08/19 21:30 CULTURE STREP A CONFIRMATION [RM] Stat STREP SCRN A RAPID W CULT CONF [RM] Stat
== END 2019-11-08 22:22 | disposition home or self-care (01) ==
LOC: MW.ED 21:12
DX: J06.0 Acute laryngopharyngitis (principal); J40 Bronchitis, not specified as acute or chronic; I10 Essential (primary) hypertension; F32.9 Major depressive disorder, single episode, unspecified; E66.9 Obesity, unspecified; Z68.42 Body mass index [BMI] 45.0-49.9, adult; F17.200 Nicotine dependence, unspecified, uncomplicated; Z88.5 Allergy status to narcotic agent; Z79.899 Other long term (current) drug therapy
CPT/HCPCS: 87081; 87804; 87880-QW; 99283

== ENCOUNTER 2020-07-26 17:58 | Emergency (ER) | payer MEDICAID ==
--- NOTE | 2020-07-26 19:20 | EDM.PDOC ---
ED HPI GENERAL MEDICAL PROBLEM - General Chief Complaint: Lower Extremity Injury/Pain Stated Complaint: STEPPED ON RAKE Time Seen by Provider: 07/26/20 18:03 Source of Information: Reports: Patient (y8) History Limitations: Reports: No Limitations - History of Present Illness INITIAL COMMENTS - FREE TEXT/NARRATIVE: 35-year-old female presents with left foot pain after stepping on a rake just prior to arrival barefoot. Tetanus up-to-date. Admits to pain to the left heel, pain is moderate, sharp, constant, nonradiating, exacerbated with weightbearing. ROS: A 10-point review of systems, other than pertinent positives and negatives as stated per HPI, is otherwise negative Past medical history: No additional pertinent history Past Surgical history: No additional pertinent history Social history: No additional pertinent history Family history: No additional pertinent history PHYSICAL EXAM General: AOx4, GCS = 15, mild distress HEENT: dry mucous membrane Neck: supple, no meningismus, no Kernig or Brudzinski Cardiac: S1S2 RRR Respiratory: CTAB, no crackles or rales, no wheezing Abdomen: Soft, nontender, no rebound or guarding, nondistended, no pulsatile mass. Back: nontender Musculoskeletal: NVI distally, no deformity, puncture wound to the left heel pad with trace bleeding, dirty feet. Neuro: No focal deficits, CN 2 - 12 WNL. Location: Reports: Lower Extremity, Left L foot Pain Score (Numeric/FACES): 6 - Related Data Allergies Allergy/AdvReac Type Severity Reaction Status Date / Time Morphine Allergy Respiratory Uncoded 07/26/20 19:34 Depression Home Meds: Home Meds amLODIPine Besylate [Amlodipine Besylate] 10 mg PO DAILY 03/07/14 [History] Dextroamphetamine/Amphetamine [Adderall Xr 10 mg Capsule] 15 mg PO BID 12/23/18 [History] ALPRAZolam [Xanax] 0.25 mg PO TID PRN 10/22/19 [History] Escitalopram [Lexapro] 20 mg PO DAILY 10/22/19 [History] buPROPion [Wellbutrin SR] 150 mg PO DAILY 10/22/19 [History] lamoTRIgine [Lamictal] 100 mg PO DAILY 10/22/19 [History] Amitriptyline [Elavil] 07/26/20 [History] Amphetamine/Dextroamphetamine [Adderall] 20 mg PO BID 07/26/20 [History] Ciprofloxacin [Ciprofloxacin HCl] 500 mg PO BID #20 tab 07/26/20 [Rx] DULoxetine [Cymbalta] 07/26/20 [History] Past Medical History - Past Health History Medical/Surgical History: Denies Medical/Surgical History HEENT History: Reports: Impaired Vision Other HEENT History: wears glasses Cardiovascular History: Reports: Hypertension Other Cardiovascular History: Benign Essential Hypertension Respiratory History: Reports: Asthma Gastrointestinal History: Reports: Cholelithiasis Other Gastrointestinal History: Current non-healing wound from Tubal ligation procedure, need for wound Incision and drainage 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: Vaginal Hysterectomy Musculoskeletal History: Reports: Other (See Below) Other Musculoskeletal History: HX: Fracture Right wrist, hx: falling no nail with puncture wound to Left knee requiring Incision and drainage; 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 Neurological History: Reports: None Psychiatric History: Reports: Depression, Other (See Below) Other Psychiatric History: Chronic major depressive disorder Endocrine/Metabolic History: Reports: Obesity/BMI 30+ Hematologic History: Reports: None Immunologic History: Reports: None Oncologic (Cancer) History: Reports: None Other Oncologic History: uterine hyperplasia Dermatologic History: Reports: None Other Dermatologic History: I&D knee wound, I&D of wound following tubal ligation, hx MRSA - Infectious Disease History Infectious Disease History: Reports: Chicken Pox, MRSA - Past Surgical History Head Surgeries/Procedures: Reports: None HEENT Surgical History: Reports: Adenoidectomy, Oral Surgery, Tonsillectomy GI Surgical History: Reports: Bariatric Procedure, Cholecystectomy Female Surgical History: Reports: Hysterectomy, Tubal Ligation Musculoskeletal Surgical History: Reports: Arthroscopic Knee, Other (See Below) Other Musculoskeletal Surgeries/Procedures:: bunion surgery bilat; hardware removal bilat feet Social & Family History - Family History Family Medical History: Noncontributory Cardiac: Reports: Blood Clots/VTE/DVT - Caffeine Use Caffeine Use: Reports: None Review of Systems - Review of Systems Review Of Systems: Comprehensive ROS is negative, except as noted in HPI. ED EXAM, GENERAL - Physical Exam Exam: See Below (see dictation) Course - Vital Signs Last Recorded V/S: Last Vital Signs Temp 97.4 F 07/26/20 19:31 Pulse 83 07/26/20 19:31 Resp 18 07/26/20 19:31 BP 113/77 07/26/20 19:31 Pulse Ox 97 07/26/20 19:31 - Re-Assessments/Exams Free Text/Narrative Re-Assessment/Exam: 07/26/20 21:09 After wound irrigation and dressing with wet-to-dry dressing, and observation in the ER, patient is currently stable for discharge. Tetanus UTD. I advised the patient to return to the ER for reevaluation if symptoms worsened, including fever, worsening pain, purulent drainage, or any other worrisome symptoms. I instructed the patient to follow up with their PCP within 2-3 days. MEDICAL DECISION MAKING: I reviewed the patients past medical records, lab and radiographic findings. I discussed the case with the patient. My differential diagnosis included: Puncture wound, skin infection, fracture. X-ray did not reveal fracture at the [place] he is which is the site of puncture wound. Wound was cleaned aggressively and dressed with wet-to-dry dressing, wound is amendable for outpatient antibiotic treatment. Given strict return precautions for signs of infection. Departure - Departure Time of Disposition: 21:11 Disposition: Home, Self-Care 01 Condition: Good Clinical Impression: Puncture wound - Discharge Information *PRESCRIPTION DRUG MONITORING PROGRAM REVIEWED*: Not Applicable *COPY OF PRESCRIPTION DRUG MONITORING REPORT IN PATIENT ALF: Not Applicable Prescriptions: Ciprofloxacin [Ciprofloxacin HCl] 500 mg PO BID #20 tab Referrals: Demario Vang MD [Primary Care Provider] - 3 Days Forms: ED Department Discharge Additional Instructions: The need for follow-up, as well as the timing and circumstances, are variable depending upon the specifics of your emergency department visit. If you don't have a primary care physician on staff, we will provide you with a referral. We always advise you to contact your personal physician following an emergency department visit to inform them of the circumstance of the visit and for follow-up with them and/or the need for any referrals to a consulting specialist. The emergency department will also refer you to a specialist when appropriate. This referral assures that you have the opportunity for follow-up care with a specialist. All of these measure are taken in an effort to provide you with optimal care, which includes your follow-up. Under all circumstances we always encourage you to contact your private physician who remains a resource for coordinating your care. When calling for follow-up care, please make the office aware that this follow-up is from your recent emergency room visit. If for any reason you are refused follow-up, please contact the [facility] Emergency Department at and asked to speak to the emergency department charge nurse. If you do not have a primary care doctor, please follow up with the clinics below within 3-5 days. [facility] [address] [place] [address] [facility] [address] [place] [id number] Sepsis Event Note (ED) - Focused Exam Vital Signs: Vital Signs Temp Pulse Resp BP Pulse Ox 07/26/20 19:31 97.4 F 83 18 113/77 97
[2020-07-26 19:34] VITALS: BP 113/77
--- NOTE | 2020-07-26 20:12 | CR ---
Indication: Stepped on rake Technique: Two views Comparison: None Findings: Bones: S/p bunion surgery with shaving of the medial aspect of the 1st metatarsal head and single screw fixation. Also slight deformity of the distal 5th metatarsal which could represent prior tailor bunion surgery or old healed fracture. No acute fracture seen. Joint spaces: Unremarkable. Soft tissues: Minimal forefoot soft tissue swelling. Dictated by Brian Mcdaniel MD @ Jul 26 2020 8:01PM Signed by Dr. Brian Mcdaniel @ Jul 26 2020 8:10PM
[2020-07-26 21:38] VITALS: PULSE 90
== END 2020-07-26 21:35 | disposition home or self-care (01) ==
LOC: MW.ED 17:58
DX: S91.332A Puncture wound without foreign body, left foot, initial encounter (principal); I10 Essential (primary) hypertension; F32.9 Major depressive disorder, single episode, unspecified; E66.9 Obesity, unspecified; Z68.42 Body mass index [BMI] 45.0-49.9, adult; Z88.5 Allergy status to narcotic agent; Z79.899 Other long term (current) drug therapy; W22.8XXA Striking against or struck by other objects, initial encounter
CPT/HCPCS: 73620-26-LT; 73620-LT; 99282; 99283-25

== ENCOUNTER 2021-09-11 19:02 | Emergency (ER) | payer MEDICAID ==
[2021-09-11] MEDS ORDERED: Sodium Chloride 0.9% 1,000 ML IV ONE (21:26)
[2021-09-11] MEDS ORDERED: Sodium Chloride 0.9% 10 ML Syringe FLUSH PRN (21:26)
[2021-09-11] MEDS ORDERED: Sodium Chloride 0.9% 2.5 ML Syringe FLUSH PRN (21:26)
[2021-09-11] MEDS ORDERED: Ondansetron 4 MG/2 ML SDV IVPUSH ONE (21:26)
[2021-09-11 22:08] LABS: BLOOD UREA NITROGEN,BUN 14 mg/dL (7.0-18.0); CARBON DIOXIDE,CO2 28.1 mmol/L (21.0-32.0); CHLORIDE,CL 102 mmol/L (98-107); GLUCOSE RANDOM 110 mg/dL (74-106); LIPASE 70 U/L (73-393); SODIUM,NA 141 mmol/L (136-145)
[2021-09-11 23:00] VITALS: BP 139/79
[2021-09-11] MEDS ORDERED: Iopamidol 755 MG/ML 500 ML Multipack Bottle IVPUSH STA (23:35)
[2021-09-11] MEDS ORDERED: Diatrizoate Meglumine/Diatrizoate Sodium 37% 30 ML Bottle PO STA (23:36)
--- NOTE | 2021-09-12 00:38 | CT ---
INDICATION: No gas or bowel movement for 7 days TECHNIQUE: CT abdomen and pelvis acquired with IV contrast. Approximately 100 cc of Isovue 370 contrast was given intravenously. Oral contrast was given. COMPARISON: CT abdomen and pelvis 02/19/2017 FINDINGS: The visualized portions of the lung bases are clear. The liver, spleen, pancreas and adrenal glands are unremarkable. The gallbladder is surgically absent. The kidneys enhance symmetrically without hydronephrosis. The bladder is partially distended and unremarkable. There are postsurgical changes gastric bypass. No dilated loops of small bowel are seen to suggest obstruction. Oral contrast is seen within the cecum. The appendix is normal. Negative for intraperitoneal free air or fluid. The bones are unremarkable. IMPRESSION: Postsurgical changes of gastric bypass. Negative for bowel obstruction. Oral contrast passes to the cecum. Please note that all CT scans at this facility use dose modulation, iterative reconstruction, and/or weight-based dosing when appropriate to reduce radiation dose to as low as reasonably achievable. Dictated by Mayte Herman MD @ 09/12/2021 12:36:55 AM (Electronically Signed)
--- NOTE | 2021-09-12 00:49 | EDM.PDOC ---
ED HPI GENERAL MEDICAL PROBLEM - General Chief Complaint: General Stated Complaint: HAS NOT EATEN IN 4 DAYS Time Seen by Provider: 09/11/21 21:13 - History of Present Illness INITIAL COMMENTS - FREE TEXT/NARRATIVE: HISTORY AND PHYSICAL: History of present illness: This is a 36-year-old female who is status post gastric bypass approximately 13 years ago who presents to the ER today secondary to decreased p.o. intake x7 days and no bowel movement for approximately 7 days. Patient reports that she is been tolerating some p.o. solids and liquids but not very much. Patient ports that she has no appetite. Patient reports no flatus or no BM for 7 days and is concerned that she might have a bowel obstruction. Patient has recent fevers, shakes, chills. Patient has any vomiting or diarrhea. Patient has any dysuria, frequency, urgency. Patient denies any abdominal pain or discomfort. Patient reports that she just feels nauseous and has no appetite. Patient denies any chest pain. Patient reports that she did eat some crackers earlier today and was able to keep those down without any difficulty. Patient reports she is able to tolerate liquids without difficulty. Review of systems: As per history of present illness and below otherwise all systems reviewed and negative. Past medical history: As per history of present illness and as reviewed below otherwise noncontributory. Surgical history: As per history of present illness and as reviewed below otherwise noncontributory. Social history: No reported history of drug abuse. Family history: As per history of present illness and as reviewed below otherwise noncontributory. Physical exam: This patient was seen and evaluated during the 2019 SARS-CoV-2 novel coronavirus pandemic period. Community viral transmission is ongoing at time of this enco unter and the emergency department is operating under pandemic response procedures. Constitutional: Patient is oriented to person, place, and time. Appears well- developed and well-nourished. No distress. HEENT: Moist mucous membranes Head: Normocephalic and atraumatic Eyes: Right eye exhibits no discharge. Left eye exhibits no discharge. No scleral icterus Neck: Normal range of motion. No tracheal deviation present. Cardiovascular: Normal rate and regular rhythm. Pulmonary: Effort normal, no respiratory distress. Abd: Soft, nondistended, no rebound/guarding, no psoas or obturator signs, no tenderness at Mcberney's point, no Kimble's sign. Pt does not present with an exam that would be consistent with an acute surgical abdomen at this time. Nontender to palpation Musculoskeletal: Normal range of motion Neurologic: Alert and oriented to person, place and time. Skin: Why, warm and dry. Psychiatric: Normal mood and affect. Behavior is normal. Judgment and thought content normal. Nursing note and vital signs have been reviewed Diagnostics: CBC, CMP within normal limits. Therapeutics: NSS/Zofran Patient required treatment with intravenous normal saline solution secondary to clinical evidence of dehydration as manifested by history and physical examination. Assessment and plan: 36-year-old female who presents ER today secondary to nausea and decreased p.o. intake and decreased flatus/BMs for 1 week[address] Patient had a CT scan of the abdomen pelvis with IV and p.o. contrast which reveals no abnormalities with her anastomoses/bypass. Patient received a CT scan of the abdomen pelvis that was unremarkable and received Zofran and IV fluids and she feels much improved. At this time, I feel the patient can be safely discharged home with continued close outpatient follow-up with her primary care physician. Patient be discharged home with a prescription for Zofran. Reassessment at the time of disposition demonstrates that the patient is in no acute distress. The patient has remained stable throughout the entire ED visit and is without objective evidence for acute process requiring urgent intervention or hospitalization. The patient is stable for discharge, counseling is provided as documented above, discussed symptomatic treatment and specific conditions for return. I have spoken with the patient/caregiver and discussed todays findings, in a ddition to providing specific details for the plan of care. Questions are answered and there is agreement with the plan. Definitive disposition and diagnosis as appropriate pending reevaluation and dean mullins of above. Abdomen Pain Score (Numeric/FACES): 4 - Related Data Allergies Allergy/AdvReac Type Severity Reaction Status Date / Time Morphine Allergy Respiratory Uncoded 09/11/21 20:54 Depression Home Meds: Home Meds amLODIPine Besylate [Amlodipine Besylate] 10 mg PO DAILY 03/07/14 [History] Dextroamphetamine/Amphetamine [Adderall Xr 10 mg Capsule] 15 mg PO BID 12/23/18 [History] ALPRAZolam [Xanax] 0.25 mg PO TID PRN 10/22/19 [History] Escitalopram [Lexapro] 20 mg PO DAILY 10/22/19 [History] Ondansetron [Zofran ODT] 4 mg PO Q6H PRN #12 tab.dis 09/12/21 [Rx] Past Medical History - Past Health History Medical/Surgical History: Denies Medical/Surgical History HEENT History: Reports: Impaired Vision Other HEENT History: wears glasses Cardiovascular History: Reports: Hypertension Other Cardiovascular History: Benign Essential Hypertension Respiratory History: Reports: Asthma Gastrointestinal History: Reports: Cholelithiasis Other Gastrointestinal History: Current non-healing wound from Tubal ligation procedure, need for wound Incision and drainage 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 PLANT SPRAYER History: Vaginal Hysterectomy Musculoskeletal History: Reports: Other (See Below) Other Musculoskeletal History: HX: Fracture Right wrist, hx: falling no nail with puncture wound to Left knee requiring Incision and drainage; 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 Neurological History: Reports: None Psychiatric History: Reports: ADD, Anxiety, Depression, Other (See Below) Other Psychiatric History: Chronic major depressive disorder Endocrine/Metabolic History: Reports: Obesity/BMI 30+ Hematologic History: Reports: None Immunologic History: Reports: None Oncologic (Cancer) History: Reports: None Other Oncologic History: uterine hyperplasia Dermatologic History: Reports: None Other Dermatologic History: I&D knee wound, I&D of wound following tubal ligation, hx MRSA - Infectious Disease History Infectious Disease History: Reports: Chicken Pox, MRSA - Past Surgical History Head Surgeries/Procedures: Reports: None HEENT Surgical History: Reports: Adenoidectomy, Oral Surgery, Tonsillectomy GI Surgical History: Reports: Bariatric Procedure, Cholecystectomy Female Surgical History: Reports: Hysterectomy, Tubal Ligation Endocrine Surgical History: Reports: None Musculoskeletal Surgical History: Reports: Arthroscopic Knee, Other (See Below) Other Musculoskeletal Surgeries/Procedures:: bunion surgery bilat; hardware removal bilat feet Oncologic Surgical History: Reports: None Social & Family History - Family History Family Medical History: No Pertinent Family History Cardiac: Reports: Blood Clots/VTE/DVT - Tobacco Use Tobacco Use Status *Q: Never Tobacco User - Caffeine Use Caffeine Use: Reports: Soda - Recreational Drug Use Recreational Drug Use: No ED ROS GENERAL - Review of Systems Review Of Systems: See Below ED EXAM, GENERAL - Physical Exam Exam: See Below Course - Vital Signs Last Recorded V/S: Last Vital Signs Temp 96.9 F 09/11/21 21:00 Pulse 68 09/11/21 23:00 Resp 14 09/11/21 23:00 BP 139/79 09/11/21 23:00 Pulse Ox 96 09/11/21 23:00 - Orders/Labs/Meds Orders: Active Orders 24 hr Category Date Time Status Sodium Chloride 0.9% [Saline Flush] Med 09/11/21 21:26 Active 10 ml FLUSH ASDIRECTED PRN Sodium Chloride 0.9% [Saline Flush] Med 09/11/21 21:26 Active 2.5 ml FLUSH ASDIRECTED PRN Saline Lock Insert [OM.PC] Stat Oth 09/11/21 21:26 Ordered Medication Orders Sodium Chloride (Sodium Chloride 0.9% 10 Ml Syringe) 10 ml FLUSH ASDIRECTED PRN PRN Reason: Keep Vein Open Sodium Chloride (Sodium Chloride 0.9% 2.5 Ml Syringe) 2.5 ml FLUSH ASDIRECTED PRN PRN Reason: Keep Vein Open Labs: Laboratory Tests 09/11/21 09/11/21 09/11/21 Range/Units 21:30 21:30 21:30 WBC 6.87 (4.0-11.0) K/uL RBC 4.87 (4.30-5.90) M/uL Hgb 14.1 (12.0-16.0) g/dL Hct 42.6 (36.0-46.0) % MCV 87.5 (80.0-98.0) fL MCH 29.0 (27.0-32.0) pg MCHC 33.1 (31.0-37.0) g/dL RDW Std Deviation 43.7 (28.0-62.0) fl RDW Coeff of [place] 14 (11.0-15.0) % Plt Count 278 (150-400) K/uL MPV 10.40 (7.40-12.00) fL Neut % (Auto) 59.7 (48.0-80.0) % Lymph % (Auto) 31.3 (16.0-40.0) % [place] % (Auto) 7.7 (0.0-15.0) % Eos % (Auto) 1.2 (0.0-7.0) % Baso % (Auto) 0.1 (0.0-1.5) % Neut # (Auto) 4.1 (1.4-5.7) K/uL Lymph # (Auto) 2.2 (0.6-2.4) K/uL [place] # (Auto) 0.5 (0.0-0.8) K/uL Eos # (Auto) 0.1 (0.0-0.7) K/uL Baso # (Auto) 0.0 (0.0-0.1) K/uL Nucleated RBC % 0.0 /100WBC Nucleated RBCs # 0 K/uL Sodium 141 (136-145) mmol/L Potassium 4.0 (3.5-5.1) mmol/L Chloride 102 (98-107) mmol/L Carbon Dioxide 28.1 (21.0-32.0) mmol/L BUN 14 (7.0-18.0) mg/dL Creatinine 0.8 (0.6-1.0) mg/dL Est Cr Clr Drug Dosing 95.45 mL/min Estimated GFR (MDRD) > 60.0 ml/min Glucose 110 H (74-106) mg/dL Calcium 8.7 (8.5-10.1) mg/dL Total Bilirubin 0.5 (0.2-1.0) mg/dL AST 210 H (15-37) IU/L ALT 111 H (14-63) IU/L Alkaline Phosphatase 154 H (46-116) U/L Total Protein 7.7 (6.4-8.2) g/dL Albumin 3.6 (3.4-5.0) g/dL Globulin 4.1 H (2.6-4.0) g/dL Albumin/Globulin Ratio 0.9 (0.9-1.6) Lipase 70 L (73-393) U/L Urine Color YELLOW Urine Appearance CLEAR Urine pH 6.0 (5.0-8.0) Ur Specific [place] >= 1.030 (1.001-1.035) Urine Protein NEGATIVE (NEGATIVE) mg/dL Urine Glucose (UA) NEGATIVE (NEGATIVE) mg/dL Urine Ketones NEGATIVE (NEGATIVE) mg/dL Urine Occult Blood NEGATIVE (NEGATIVE) Urine Nitrite NEGATIVE (NEGATIVE) Urine Bilirubin NEGATIVE (NEGATIVE) Urine Urobilinogen 1.0 (<2.0) EU/dL Ur Leukocyte Esterase NEGATIVE (NEGATIVE) Meds: Medications Generic Name Dose Route Start Last Admin Trade Name Freq PRN Reason Stop Dose Admin Sodium Chloride 10 ml 09/11/21 21:26 Sodium Chloride 0.9% 10 Ml Syringe FLUSH ASDIRECTED PRN Keep Vein Open Sodium Chloride 2.5 ml 09/11/21 21:26 Sodium Chloride 0.9% 2.5 Ml Syringe FLUSH ASDIRECTED PRN Keep Vein Open Discontinued Medications Generic Name Dose Route Start Last Admin Trade Name Freq PRN Reason Stop Dose Admin Diatrizoate Meglum/Diatrizoate Sod 30 ml 09/11/21 23:36 09/11/21 23:42 Diatrizoate Meglumine/Diatrizoate Sodium 37% 30 Ml Bottle PO 09/11/21 23:37 30 ml ONETIME STA Administration Sodium Chloride 1,000 mls @ 999 mls/hr 09/11/21 21:26 09/11/21 21:37 Normal Saline IV 09/11/21 22:26 999 mls/hr .Bolus ONE Administration Iopamidol 100 ml 09/11/21 23:35 09/11/21 23:37 Iopamidol 755 Mg/Ml 500 Ml Multipack Bottle IVPUSH 09/11/21 23:36 100 ml ONETIME STA Administration Ondansetron HCl 4 mg 09/11/21 21:26 09/11/21 21:37 Ondansetron 4 Mg/2 Ml Sdv IVPUSH 09/11/21 21:27 4 mg ONETIME ONE Administration Departure - Departure Time of Disposition: 00:48 Disposition: Home, Self-Care 01 Condition: Good Clinical Impression: Nausea, Dehydration - Discharge Information Instructions: Nausea, Adult Referrals: PCP,None [Primary Care Provider] - Additional Instructions: You will be given a prescription for Zofran to assist with your symptoms. Please make an appointment see your family doctor in the next 1 to 2 days for reevaluation. The CT scan of your abdomen pelvis did not reveal any evidence of obstruction or abnormalities with your anastomoses/gastric bypass. All your blood tests were within normal limits. The following information is given to patients seen in the emergency department who are being discharged to home. This information is to outline your options for follow-up care. We provide all patients seen in our emergency department with a follow-up referral. The need for follow-up, as well as the timing and circumstances, are variable depending upon the specifics of your emergency department visit. If you don't have a primary care physician on staff, we will provide you with a referral. We always advise you to contact your personal physician following an emergency department visit to inform them of the circumstance of the visit and for follow-up with them and/or the need for any referrals to a consulting specialist. The emergency department will also refer you to a specialist when appropriate. This referral assures that you have the opportunity for follow-up care with a specialist. All of these measure are taken in an effort to provide you with optimal care, which includes your follow-up. Under all circumstances we always encourage you to contact your private physician who remains a resource for coordinating your care. When calling for follow-up care, please make the office aware that this follow-up is from your recent emergency room visit. If for any reason you are refused follow-up, please contact the [facility] Emergency Department at and asked to speak to the emergency department charge nurse. [facility] - Primary Care [address] [place] [address] [place] [address] Sepsis Event Note (ED) - Evaluation Sepsis Screening Result: No Definite Risk - Focused Exam Vital Signs: Vital Signs Temp Pulse Resp BP Pulse Ox 09/11/21 23:00 68 14 139/79 96 09/11/21 21:00 96.9 F 76 16 117/83 - My Orders Last 24 Hours: My Active Orders 09/11/21 21:26 Sodium Chloride 0.9% [Saline Flush] 10 ml FLUSH ASDIRECTED PRN Sodium Chloride 0.9% [Saline Flush] 2.5 ml FLUSH ASDIRECTED PRN Saline Lock Insert [OM.PC] Stat - Assessment/Plan Last 24 Hours: My Active Orders 09/11/21 21:26 Sodium Chloride 0.9% [Saline Flush] 10 ml FLUSH ASDIRECTED PRN Sodium Chloride 0.9% [Saline Flush] 2.5 ml FLUSH ASDIRECTED PRN Saline Lock Insert [OM.PC] Stat
[2021-09-12 01:08] VITALS: PULSE 74
== END 2021-09-12 01:09 | disposition home or self-care (01) ==
LOC: MW.ED 19:02
DX: R11.0 Nausea (principal); E86.0 Dehydration; I10 Essential (primary) hypertension; J45.909 Unspecified asthma, uncomplicated; E66.9 Obesity, unspecified; Z68.42 Body mass index [BMI] 45.0-49.9, adult
CPT/HCPCS: 36415; 74177; 80053; 81003; 83690; 85025; 96374; 99284; J2405; J7030; Q9963; Q9967

== ENCOUNTER 2021-10-13 11:38 | Emergency (ER) | payer MEDICAID ==
--- NOTE | 2021-10-13 12:27 | EDM.PDOC ---
ED HPI GENERAL MEDICAL PROBLEM - General Chief Complaint: Respiratory Problem Stated Complaint: SICK SINCE LAST WEEK Time Seen by Provider: 10/13/21 11:39 Source of Information: Reports: Patient History Limitations: Reports: No Limitations - History of Present Illness INITIAL COMMENTS - FREE TEXT/NARRATIVE: Patient is a 36-year-old female who presents today with her children. Kids have been sick for the past few days and she want to get checkup with she also felt, tired today. She denies any chest pain fever chills nausea vomiting or other complaints. - Related Data Allergies Allergy/AdvReac Type Severity Reaction Status Date / Time Morphine Allergy Respiratory Uncoded 10/13/21 12:09 Depression Home Meds: Home Meds amLODIPine Besylate [Amlodipine Besylate] 10 mg PO DAILY 03/07/14 [History] Dextroamphetamine/Amphetamine [Adderall Xr 10 mg Capsule] 15 mg PO BID 12/23/18 [History] ALPRAZolam [Xanax] 0.25 mg PO TID PRN 10/22/19 [History] Escitalopram [Lexapro] 20 mg PO DAILY 10/22/19 [History] Ondansetron [Zofran ODT] 4 mg PO Q6H PRN #12 tab.dis 09/12/21 [Rx] Past Medical History - Past Health History Medical/Surgical History: Denies Medical/Surgical History HEENT History: Reports: Impaired Vision Other HEENT History: wears glasses Cardiovascular History: Reports: Hypertension Other Cardiovascular History: Benign Essential Hypertension Respiratory History: Reports: Asthma Gastrointestinal History: Reports: Cholelithiasis Other Gastrointestinal History: Current non-healing wound from Tubal ligation procedure, need for wound Incision and drainage Genitourinary History: Reports: None 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: Vaginal Hysterectomy Musculoskeletal History: Reports: Other (See Below) Other Musculoskeletal History: HX: Fracture Right wrist, hx: falling no nail with puncture wound to Left knee requiring Incision and drainage; 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 Neurological History: Reports: None Psychiatric History: Reports: ADD, Anxiety, Depression, Other (See Below) Other Psychiatric History: Chronic major depressive disorder Endocrine/Metabolic History: Reports: Obesity/BMI 30+ Hematologic History: Reports: None Immunologic History: Reports: None Oncologic (Cancer) History: Reports: None Other Oncologic History: uterine hyperplasia Dermatologic History: Reports: None Other Dermatologic History: I&D knee wound, I&D of wound following tubal ligation, hx MRSA - Infectious Disease History Infectious Disease History: Reports: Chicken Pox, MRSA - Past Surgical History Head Surgeries/Procedures: Reports: None HEENT Surgical History: Reports: Adenoidectomy, Oral Surgery, Tonsillectomy Cardiovascular Surgical History: Reports: None GI Surgical History: Reports: Bariatric Procedure, Cholecystectomy Female Surgical History: Reports: Hysterectomy, Tubal Ligation Endocrine Surgical History: Reports: None Musculoskeletal Surgical History: Reports: Arthroscopic Knee, Other (See Below) Other Musculoskeletal Surgeries/Procedures:: bunion surgery bilat; hardware re moval bilat feet Oncologic Surgical History: Reports: None Social & Family History - Family History Family Medical History: No Pertinent Family History Cardiac: Reports: Blood Clots/VTE/DVT - Tobacco Use Tobacco Use Status *Q: Never Tobacco User - Caffeine Use Caffeine Use: Reports: Coffee, Energy Drinks, Soda - Recreational Drug Use Recreational Drug Use: No ED ROS GENERAL - Review of Systems Review Of Systems: See Below Constitutional: Reports: No Symptoms HEENT: Reports: No Symptoms Respiratory: Reports: No Symptoms Cardiovascular: Reports: No Symptoms Endocrine: Reports: No Symptoms GI/Abdominal: Reports: No Symptoms : Reports: No Symptoms Musculoskeletal: Reports: No Symptoms Skin: Reports: No Symptoms Neurological: Reports: No Symptoms Psychiatric: Reports: No Symptoms Hematologic/Lymphatic: Reports: No Symptoms Immunologic: Reports: No Symptoms ED EXAM, GENERAL - Physical Exam Exam: See Below Exam Limited By: No Limitations General Appearance: Alert, WD/WN, No Apparent Distress Eye Exam: Bilateral Eye: EOMI, PERRL Head: Atraumatic Neck: Normal Inspection Respiratory/Chest: No Respiratory Distress, Lungs Clear, Normal Breath Sounds Cardiovascular: Normal Peripheral Pulses, Regular Rate, Rhythm GI/Abdominal: Normal Bowel Sounds, Soft, Non-Tender Extremities: Normal Inspection, Normal Range of Motion, Non-Tender Neurological: Alert, Oriented, Normal Cognition, Normal Gait #1 Interpretation EKG Date: 10/13/21 Time: 12:41 Rhythm: NSR Rate (Beats/Min): 96 ST-T: Normal Course - Vital Signs Last Recorded V/S: Last Vital Signs Temp 96.7 F L 10/13/21 12:10 Pulse 119 H 10/13/21 12:10 Resp 20 10/13/21 12:10 BP 159/108 H 10/13/21 12:10 Pulse Ox 96 10/13/21 12:10 Departure - Departure Time of Disposition: 12:26 Disposition: Home, Self-Care 01 Condition: Good Clinical Impression: General medical exam - Discharge Information *PRESCRIPTION DRUG MONITORING PROGRAM REVIEWED*: Not Applicable *COPY OF PRESCRIPTION DRUG MONITORING REPORT IN PATIENT ALF: Not Applicable Instructions: Viral Illness, Adult Referrals: PCP,None [Primary Care Provider] - Forms: ED Department Discharge Additional Instructions: You were seen today and you are evaluated for not feeling well for the past few days. On exam you look well your lungs are clear states her symptoms are have improved recommend follow-up to primary care physician if you have any other worsening symptoms or complaints. The following information is given to patients seen in the emergency department who are being discharged to home. This information is to outline your options for follow-up care. We provide all patients seen in our emergency department with a follow-up referral. The need for follow-up, as well as the timing and circumstances, are variable depending upon the specifics of your emergency department visit. If you don't have a primary care physician on staff, we will provide you with a referral. We always advise you to contact your personal physician following an emergency department visit to inform them of the circumstance of the visit and for follow-up with them and/or the need for any referrals to a consulting spec ialist. The emergency department will also refer you to a specialist when appropriate. This referral assures that you have the opportunity for follow-up care with a specialist. All of these measure are taken in an effort to provide you with optimal care, which includes your follow-up. Under all circumstances we always encourage you to contact your private physician who remains a resource for coordinating your care. When calling for follow-up care, please make the office aware that this follow-up is from your recent emergency room visit. If for any reason you are refused follow-up, please contact the [facility] Emergency Department at and asked to speak to the emergency department charge nurse. Please follow up with your primary care physician. If you do not have a primary care physician, see below: [facility] Primary Care [address] [place] [address] [id number] [place] [address] Sepsis Event Note (ED) - Evaluation Sepsis Screening Result: No Definite Risk - Focused Exam Vital Signs: Vital Signs Temp Pulse Resp BP Pulse Ox 10/13/21 12:10 96.7 F L 119 H 20 159/108 H 96 - Assessment/Plan Plan: Patient is a 36-year-old female who brought in today after a case of being evaluated for viral illnesses. She states she felt not well today her self and want to get checked out. She denies any chest pain fever chills nausea vomiting. She is tachycardic but again denies any chest pain will obtain EKG. We offered to swab the patient for Covid or to x-ray patient refused both states she does not feel that bad.
[2021-10-13 13:01] VITALS: BP 160/80; PULSE 88
== END 2021-10-13 13:02 | disposition home or self-care (01) ==
LOC: MW.ED 11:38
DX: Z00.8 Encounter for other general examination (principal); I10 Essential (primary) hypertension; E66.9 Obesity, unspecified; Z68.43 Body mass index [BMI] 50.0-59.9, adult; Z88.5 Allergy status to narcotic agent
CPT/HCPCS: 93005; 99283-25

== ENCOUNTER 2021-10-14 18:36 | Emergency (ER) | payer MEDICAID ==
--- NOTE | 2021-10-14 21:13 | CR ---
Indication: Injury and pain. Technique: Right knee 4 views. Comparison: None. Findings: Bones: Alignment is normal. No fractures or bone lesions. Joint spaces: No degenerative changes and no joint effusion. Soft tissues: Small anterior soft tissue calcifications appear benign and are of doubtful significance. Impression: No sign of acute injury. Dictated by Amandeep Jamison MD @ 10/14/2021 9:11:51 PM (Electronically Signed)
--- NOTE | 2021-10-14 22:08 | EDM.PDOC ---
ED HPI GENERAL MEDICAL PROBLEM - General Chief Complaint: Lower Extremity Injury/Pain Stated Complaint: KNEE PAIN FROM FALL Time Seen by Provider: 10/14/21 21:08 Source of Information: Reports: Patient History Limitations: Reports: No Limitations - History of Present Illness INITIAL COMMENTS - FREE TEXT/NARRATIVE: 36-year-old obese female presents with right knee pain and left ankle pain after tripping and falling at 9:00 in the morning today. She fell on her right knee and twisted her left ankle. Her joints are swollen and hurts with ambulation and weightbearing. ROS: A 10-point review of systems, other than pertinent positives and negatives as stated per HPI, is otherwise negative Past medical history: No additional pertinent history Past Surgical history: No additional pertinent history Social history: No additional pertinent history Family history: No additional pertinent history PHYSICAL EXAM General: AOx4, GCS = 15, obese, mild distress HEENT: dry mucous membrane Neck: supple, no meningismus, no Kernig or Brudzinski Cardiac: S1S2 RRR Respiratory: CTAB, no crackles or rales, no wheezing Abdomen: Soft, nontender, no rebound or guarding, nondistended, no pulsatile mass. Back: nontender Musculoskeletal: NVI distally, right knee contused and tender to palpation, left ankle lateral malleolus tender to palpation and swollen. No proximal fibular tenderness to the left lower extremity. Neuro: No focal deficits, CN 2 - 12 WNL. Front/Back Body Image: 1 - swelling, tender 2 - tender/bruised/swelling Right Knee Pain Score (Numeric/FACES): 8 - Related Data Allergies Allergy/AdvReac Type Severity Reaction Status Date / Time Morphine Allergy Respiratory Uncoded 10/14/21 19:57 Depression Home Meds: Home Meds amLODIPine Besylate [Amlodipine Besylate] 10 mg PO DAILY 03/07/14 [History] Dextroamphetamine/Amphetamine [Adderall Xr 10 mg Capsule] 15 mg PO BID 12/23/18 [History] ALPRAZolam [Xanax] 0.25 mg PO TID PRN 10/22/19 [History] Escitalopram [Lexapro] 20 mg PO DAILY 10/22/19 [History] Ondansetron [Zofran ODT] 4 mg PO Q6H PRN #12 tab.dis 09/12/21 [Rx] Naproxen [Naprosyn] 500 mg PO Q12HR #30 tab 10/14/21 [Rx] traMADol [Ultram] 1 dose PO DAILY PRN 10/14/21 [History] Past Medical History - Past Health History Medical/Surgical History: Denies Medical/Surgical History HEENT History: Reports: Impaired Vision Other HEENT History: wears glasses Cardiovascular History: Reports: Hypertension Other Cardiovascular History: Benign Essential Hypertension Respiratory History: Reports: Asthma Gastrointestinal History: Reports: Cholelithiasis Other Gastrointestinal History: Current non-healing wound from Tubal ligation procedure, need for wound Incision and drainage Genitourinary History: Reports: None PHARMACOLOGIST History: Reports: Other PHARMACOLOGIST History: Vaginal Hysterectomy Musculoskeletal History: Reports: Other (See Below) Other Musculoskeletal History: HX: Fracture Right wrist, hx: falling no nail with puncture wound to Left knee requiring Incision and drainage; 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 Neurological History: Reports: None Psychiatric History: Reports: ADD, Anxiety, Depression, Other (See Below) Other Psychiatric History: Chronic major depressive disorder Endocrine/Metabolic History: Reports: Obesity/BMI 30+ Hematologic History: Reports: None Immunologic History: Reports: None Oncologic (Cancer) History: Reports: None Other Oncologic History: uterine hyperplasia Dermatologic History: Reports: None Other Dermatologic History: I&D knee wound, I&D of wound following tubal l igation, hx MRSA - Infectious Disease History Infectious Disease History: Reports: Chicken Pox, MRSA - Past Surgical History Head Surgeries/Procedures: Reports: None HEENT Surgical History: Reports: Adenoidectomy, Oral Surgery, Tonsillectomy Cardiovascular Surgical History: Reports: None GI Surgical History: Reports: Bariatric Procedure, Cholecystectomy Female Surgical History: Reports: Hysterectomy, Tubal Ligation Endocrine Surgical History: Reports: None Musculoskeletal Surgical History: Reports: Arthroscopic Knee, Other (See Below) Other Musculoskeletal Surgeries/Procedures:: bunion surgery bilat; hardware removal bilat feet Oncologic Surgical History: Reports: None Social & Family History - Family History Family Medical History: No Pertinent Family History Cardiac: Reports: Blood Clots/VTE/DVT - Tobacco Use Tobacco Use Status *Q: Never Tobacco User - Caffeine Use Caffeine Use: Reports: Coffee, Energy Drinks, Soda - Recreational Drug Use Recreational Drug Use: No Review of Systems - Review of Systems Review Of Systems: See Below (see dictation) ED EXAM, GENERAL - Physical Exam Exam: See Below (see dictation) ED TRAUMA EXTREMITY PROCEDURES - Splinting Left Lower Extremity Splint Site: Left ankle Pre-Procedure NV Status: Normal Post-Procedure NV Status: Normal Splint Material: Air Splint Splint Design: Stirrup Applied & Form Fitted By: Nurse Provider Post-Splint Application NV Check: NV Status Normal, Good Position Complications: No Right Lower Extremity Splint Site: Right knee Pre-Procedure NV Status: Normal Post-Procedure NV Status: Normal Splint Design: Knee Immobilizer Applied & Form Fitted By: Nurse Provider Post-Splint Application NV Check: NV Status Normal, Good Position Complications: No Course - Vital Signs Last Recorded V/S: Last Vital Signs Temp 97.3 F 10/14/21 19:59 Pulse 103 H 10/14/21 22:45 Resp 18 10/14/21 19:59 BP 134/74 10/14/21 22:45 Pulse Ox 97 10/14/21 22:45 - Orders/Labs/Meds Orders: Active Orders 24 hr Category Date Time Status DME for Discharge [COMM] Stat Oth 10/14/21 21:22 Ordered DME for Discharge [COMM] Stat Oth 10/14/21 21:24 Ordered DME for Discharge [COMM] Stat Oth 10/14/21 23:15 Ordered Meds: Medications Discontinued Medications Generic Name Dose Route Start Last Admin Trade Name Freq PRN Reason Stop Dose Admin Oxycodone/Acetaminophen 1 tab 10/14/21 22:26 10/14/21 22:43 Acetaminophen/Oxycodone 325-5 Mg Tab PO 10/14/21 22:27 1 tab ONETIME ONE Administration Departure - Departure Time of Disposition: 23:17 Disposition: Home, Self-Care 01 Condition: Good Clinical Impression: Contusion of knee, Sprain of knee, Left ankle sprain - Discharge Information *PRESCRIPTION DRUG MONITORING PROGRAM REVIEWED*: Not Applicable *COPY OF PRESCRIPTION DRUG MONITORING REPORT IN PATIENT ALF: Not Applicable Prescriptions: Naproxen [Naprosyn] 500 mg PO Q12HR #30 tab Instructions: Ankle Sprain, Cast or Splint Care, Adult, [id number], Knee Sprain, Adult, [id number], Crutch Use, Adult, [id number], How to Use a Knee Immobilizer, [id number] Referrals: Demaroi Vang MD [Primary Care Provider] - Forms: ED Department Discharge Additional Instructions: The need for follow-up, as well as the timing and circumstances, are variable depending upon the specifics of your emergency department visit. If you don't have a primary care physician on staff, we will provide you with a referral. We always advise you to contact your personal physician following an emergency department visit to inform them of the circumstance of the visit and for follow-up with them and/or the need for any referrals to a consulting specialist. The emergency department will also refer you to a specialist when appropriate. This referral assures that you have the opportunity for follow-up care with a specialist. All of these measure are taken in an effort to provide you with optimal care, which includes your follow-up. Under all circumstances we always encourage you to contact your private physician who remains a resource for coordinating your care. When calling for follow-up care, please make the office aware that this follow-up is from your recent emergency room visit. If for any reason you are refused follow-up, please contact the [facility] Emergency Department at and asked to speak to the emergency department charge nurse. If you do not have a primary care doctor, please follow up with the clinics below within 3-5 days. [facility] [address] [place] [id number] [facility] [address] [place] [id number] Sepsis Event Note (ED) - Evaluation Sepsis Screening Result: No Definite Risk - Focused Exam Vital Signs: Vital Signs Temp Pulse Resp BP Pulse Ox 10/14/21 22:45 103 H 134/74 97 10/14/21 19:59 97.3 F 121 H 18 134/83 99 - My Orders Last 24 Hours: My Active Orders 10/14/21 21:22 DME for Discharge [COMM] Stat 10/14/21 21:24 DME for Discharge [COMM] Stat 10/14/21 23:15 DME for Discharge [COMM] Stat - Assessment/Plan Last 24 Hours: My Active Orders 10/14/21 21:22 DME for Discharge [COMM] Stat 10/14/21 21:24 DME for Discharge [COMM] Stat 10/14/21 23:15 DME for Discharge [COMM] Stat
[2021-10-14] MEDS ORDERED: Acetaminophen/oxyCODONE 325-5 MG Tab PO ONE (22:26)
[2021-10-14 22:46] VITALS: PULSE 103
--- NOTE | 2021-10-14 22:58 | CR ---
INDICATION: Trip and fall from standing height. Lateral ankle pain. COMPARISON: None available. FINDINGS: AP, lateral and oblique views of the left ankle were obtained for a total of three views. The technologist indicates pain in the area of the lateral malleolus. There is no sign of fracture or dislocation. The ankle mortise is intact. The talar dome is intact. There is no sign of a joint effusion. There is mild lateral and anterior soft tissue swelling with no sign of any osseous injury or soft tissue gas. No degenerative changes are seen. IMPRESSION: No sign of acute osseous injury. Mild lateral and anterior soft tissue swelling. Dictated by Ramon Rolle MD @ 10/14/2021 10:56:50 PM (Electronically Signed)
[2021-10-14 23:56] VITALS: BP 138/94
== END 2021-10-14 23:59 | disposition home or self-care (01) ==
LOC: MW.ED 18:36
DX: S93.402A Sprain of unspecified ligament of left ankle, initial encounter (principal); S83.91XA Sprain of unspecified site of right knee, initial encounter; I10 Essential (primary) hypertension; E66.9 Obesity, unspecified; Z88.5 Allergy status to narcotic agent; Z68.42 Body mass index [BMI] 45.0-49.9, adult; W01.0XXA Fall on same level from slipping, tripping and stumbling without subsequent striking against object, initial encounter
CPT/HCPCS: 73564; 73610; 99283; A9270

== ENCOUNTER 2022-03-23 21:27 | Emergency (ER) | payer MEDICAID ==
[2022-03-23 22:32] LABS: BLOOD UREA NITROGEN,BUN 19 mg/dL (7.0-18.0); CARBON DIOXIDE,CO2 26.2 mmol/L (21.0-32.0); CHLORIDE,CL 103 mmol/L (98-107); GLUCOSE RANDOM 101 mg/dL (74-106); POTASSIUM,K 4.2 mmol/L (3.5-5.1); SODIUM,NA 137 mmol/L (136-145)
[2022-03-23] MEDS ORDERED: Iopamidol 755 MG/ML 500 ML Multipack Bottle IVPUSH STA (23:01)
[2022-03-24 00:32] VITALS: BP 108/65; PULSE 75
== END 2022-03-24 00:29 | disposition home or self-care (01) ==
LOC: MW.ED 21:27
DX: R06.02 Shortness of breath (principal); I10 Essential (primary) hypertension; F41.9 Anxiety disorder, unspecified; F32.A Depression, unspecified; E66.9 Obesity, unspecified; Z68.43 Body mass index [BMI] 50.0-59.9, adult; Z88.5 Allergy status to narcotic agent; Z79.899 Other long term (current) drug therapy
CPT/HCPCS: 36415; 71275; 80048; 83735; 85025; 93005; 99285; Q9967; 99283

== ENCOUNTER 2023-03-04 15:04 | Emergency (ER) | payer MEDICAID ==
[2023-03-04] MEDS ORDERED: Erythromycin Base 0.5% Ophth Oint 1 GM Tube EYELF ONE (15:25)
[2023-03-04 15:52] VITALS: BP 115/94; PULSE 109
== END 2023-03-04 15:50 | disposition home or self-care (01) ==
LOC: MW.ED 15:04
DX: H10.89 Other conjunctivitis (principal); B96.89 Other specified bacterial agents as the cause of diseases classified elsewhere; I10 Essential (primary) hypertension; J45.909 Unspecified asthma, uncomplicated; E66.9 Obesity, unspecified; Z88.5 Allergy status to narcotic agent; Z68.42 Body mass index [BMI] 45.0-49.9, adult
CPT/HCPCS: 99282; A9270

== ENCOUNTER 2023-09-09 15:57 | Emergency (ER) | payer OTHER, MEDICAID ==
[2023-09-09] MEDS ORDERED: Cyclobenzaprine 10 MG Tab PO ONE (17:22)
[2023-09-09] MEDS ORDERED: Ketorolac 60 MG/2 ML SDV IM ONE (17:22)
[2023-09-09 18:06] VITALS: PULSE 99
[2023-09-09 20:00] VITALS: BP 158/84
== END 2023-09-09 19:59 | disposition home or self-care (01) ==
LOC: MW.ED 15:57
DX: S69.91XA Unspecified injury of right wrist, hand and finger(s), initial encounter (principal); J01.20 Acute ethmoidal sinusitis, unspecified; I10 Essential (primary) hypertension; E66.9 Obesity, unspecified; Z68.43 Body mass index [BMI] 50.0-59.9, adult; Z88.5 Allergy status to narcotic agent; V87.7XXA Person injured in collision between other specified motor vehicles (traffic), initial encounter
CPT/HCPCS: 70450; 73130; 96372; 99284; A9270; J1885; 99283

== ENCOUNTER 2024-10-19 02:26 | Emergency (ER) | payer MEDICAID ==
[2024-10-19 02:35] VITALS: PULSE 56
[2024-10-19 03:16] LABS: BASOPHILS ABSOLUTE AUTO 0.07 K/uL (0.00-0.20); BASOPHILS PERCENT AUTO 0.8 % (0.0-1.0); EOSINOPHILS ABSOLUTE AUTO 0.49 K/uL (0.00-0.45); EOSINOPHILS PERCENT AUTO 5.4 % (0.0-6.0); HEMATOCRIT 38.3 % (37.0-47.0); HEMOGLOBIN 12.9 g/dL (12.0-16.0); IMMATURE GRAN ABSOLUTE AUTO 0.01 K/uL (0.00-0.05); IMMATURE GRAN PERCENT AUTO 0.1 % (0.0-0.4); LYMPHOCYTES ABSOLUTE AUTO 2.44 K/uL (1.00-4.80); LYMPHOCYTES PERCENT AUTO 27.1 % (24.0-44.0); MEAN CORPUSCULAR HEMOGLOBIN 27.9 pg (28.0-32.0); MEAN CORPUSCULAR HGB CONC 33.7 g/dL (32.0-36.0); MEAN CORPUSCULAR VOLUME 82.7 fL (83.0-99.0); MEAN PLATELET VOLUME 9.8 fL (9.4-12.3); MONOCYTES PERCENT AUTO 6.7 % (0.0-8.0); NEUTROPHILS PERCENT AUTO 59.9 % (41.0-71.0); PLATELET COUNT,PLT 311 K/uL (150-400); RED BLOOD CELL COUNT 4.63 M/uL (4.10-5.30); WHITE BLOOD CELL COUNT,WBC 9.01 K/uL (3.9-11.3)
[2024-10-19 03:34] LABS: BLOOD UREA NITROGEN,BUN 16 mg/dL (7.0-18.0); CALCIUM 9.2 mg/dL (8.5-10.1); CARBON DIOXIDE,CO2 26.6 mmol/L (21.0-32.0); CHLORIDE,CL 101 mmol/L (98-107); CREATININE 0.9 mg/dL (0.6-1.0); ESTIMATED GFR 84 mL/min (>60); GLUCOSE RANDOM 154 mg/dL (74-106); POTASSIUM,K 4.1 mmol/L (3.5-5.1); SODIUM,NA 138 mmol/L (136-145)
[2024-10-19] MEDS: Sodium Chloride 0.9% 1,000 ML IV ONE (04:13)
[2024-10-19 05:06] VITALS: BP 122/79
== END 2024-10-19 05:17 | disposition home or self-care (01) ==
LOC: MW.ED 02:26
DX: R42 Dizziness and giddiness (principal); I10 Essential (primary) hypertension; E66.9 Obesity, unspecified; Z90.49 Acquired absence of other specified parts of digestive tract; Z90.710 Acquired absence of both cervix and uterus; Z79.899 Other long term (current) drug therapy; Z88.5 Allergy status to narcotic agent
CPT/HCPCS: 36415; 80048; 82947; 84703; 85025; 96360; 99284; J7030; 99283